=== PATIENT | male | born 1935 | race Caucasian/White ===

== ENCOUNTER 2019-12-28 13:31 | Outpatient (CLI) | payer MEDICARE, SELFPAY ==
[2019-12-28 14:10] LABS: Blood Urea Nitrogen 16 mg/dL (9-20); Calcium 8.8 mg/dL (8.4-10.2); Carbon Dioxide 25 mmol/L (22-30); Chloride 104 mmol/L (98-107); Cholesterol 122 mg/dL (0-200); Estimated Glomerular Filt Rate > 60; Glucose 114 mg/dL (75-110); HDL Direct 57 mg/dL; Potassium 4.5 mmol/L (3.4-5.0); Sodium 137 mmol/L (137-145); Triglycerides 90 mg/dL (<150)
[2019-12-28 14:21] LABS: LDL Cholesterol Direct 47 mg/dL
[2019-12-28 14:26] LABS: Creatinine Urine 140.6 mg/dL
[2019-12-28 14:31] LABS: Microalbumin Urine Random 7.1 mg/L (0-16.7)
[2019-12-28 14:39] LABS: Thyroid Stimulating Hormone 0.928 uIU/mL (0.465-4.680)
[2019-12-28 14:41] LABS: Free T4 Free Thyroxine 1.41 ng/mL (0.78-2.19)
== END 2019-12-28 13:32 | disposition home or self-care (01) ==
PROVIDERS: PCP Internal Medicine; Visit Provider Internal Medicine
DX: E03.9 Hypothyroidism, unspecified (principal); E78.2 Mixed hyperlipidemia; I10 Essential (primary) hypertension; E11.9 Type 2 diabetes mellitus without complications
CPT/HCPCS: 36415; 80048; 80061; 82043; 84439; 84443

== ENCOUNTER 2020-06-27 14:51 | Outpatient (CLI) | payer MEDICARE, SELFPAY ==
--- NOTE | ~2020-06-27 | CT_ITS ---
EXAMINATION: CT brain wo con EXAM DATE: 06/27/2020 15:43 INDICATION: Dementia. TECHNIQUE: Spiral CT of the head was performed without contrast. Axial, coronal and sagittal images were reviewed. The dose-length product (DLP) for this examination was 605.33 mGy-cm. The exposure w as tailored according to patient size, and iterative reconstruction (ASIR) was used as additional dos e reduction technique. There is no prior study for comparison. FINDINGS: There is no acute intraparenchymal hemorrhage. No evidence of intraparenchymal brain mass lesion. No evidence of acute infarction. Please note that initial head CT has limited sensitivity f or small or acute infarctions. There is mild periventricular and subcortical hypodensity, nonspecific but probably related to small vessel ischemic disease. There is moderate prominence of the sulci a nd ventricles related to cerebral atrophy. There is intracranial carotid arteriosclerosis. There a re no extra-axial collections. There is no mass effect or midline shift. Patient has had bilateral ocular lens surgery. Soft tissue is unremarkable. The visualized sinuses and mastoid air cells are well aerated. IMPRESSION: 1. No acute intracranial findings. 2. Chronic age related findings. Reviewed, dictated and finalized at location A. TEACHER
[2020-06-27 18:51] LABS: Thyroid Stimulating Hormone 0.753 uIU/mL (0.465-4.680)
[2020-06-27 19:26] LABS: Folic Acid 10.4 ng/mL (2.76->20)
== END 2020-06-27 14:52 | disposition home or self-care (01) ==
PROVIDERS: PCP Internal Medicine
DX: E11.9 Type 2 diabetes mellitus without complications (principal); Z51.81 Encounter for therapeutic drug level monitoring; Z79.899 Other long term (current) drug therapy; I10 Essential (primary) hypertension; E78.2 Mixed hyperlipidemia; E03.9 Hypothyroidism, unspecified; R79.89 Other specified abnormal findings of blood chemistry; E55.9 Vitamin D deficiency, unspecified; F03.90 Unspecified dementia, unspecified severity, without behavioral disturbance, psychotic disturbance, mood disturbance, and anxiety
CPT/HCPCS: 36415; 70450; 82607; 82746; 84443

== ENCOUNTER 2020-08-21 13:23 | Outpatient (CLI) | payer MEDICARE, SELFPAY ==
[2020-08-21 14:04] LABS: Alanine Aminotransferase 14 U/L (4-50); Albumin Level 4.4 g/dL (3.5-5.1); Alkaline Phosphatase 112 U/L (38-126); Anion Gap 5 mmol/L (8-16); Aspartate Amino Transferase 27 U/L (17-59); Bilirubin,Total 1.1 mg/dL (0.2-1.3); Blood Urea Nitrogen 18 mg/dL (9-20); Calcium 9.3 mg/dL (8.4-10.2); Carbon Dioxide 32 mmol/L (22-30); Chloride 102 mmol/L (98-107); Cholesterol 123 mg/dL (0-200); Estimated Glomerular Filt Rate 58; Glucose 108 mg/dL (75-110); HDL Direct 57 mg/dL; Potassium 4.7 mmol/L (3.4-5.0); Sodium 139 mmol/L (137-145); Triglycerides 88 mg/dL (<150)
[2020-08-21 14:14] LABS: LDL Cholesterol Direct 41 mg/dL
[2020-08-21 14:34] LABS: Thyroid Stimulating Hormone 0.981 uIU/mL (0.465-4.680)
[2020-08-21 14:44] LABS: Hemoglobin A1C 5.8 % (<5.7)
[2020-08-21 14:57] LABS: Free T4 Free Thyroxine 1.55 ng/mL (0.78-2.19)
== END 2020-08-21 13:24 | disposition home or self-care (01) ==
PROVIDERS: PCP Internal Medicine; Visit Provider Internal Medicine
DX: E03.9 Hypothyroidism, unspecified (principal); E11.9 Type 2 diabetes mellitus without complications; I10 Essential (primary) hypertension; E78.2 Mixed hyperlipidemia
CPT/HCPCS: 36415; 80053; 80061; 83036; 84439; 84443

== ENCOUNTER 2020-09-15 10:47 | Outpatient (CLI) | payer MEDICARE, SELFPAY | END 2020-09-15 10:48 | disposition home or self-care (01) | LOC: ANHCOVIDVC 10:47 | PROVIDERS: PCP Internal Medicine | DX: Z23 Encounter for immunization (principal) | CPT/HCPCS: 0001A; 91300 ==

== ENCOUNTER 2020-10-06 10:40 | Outpatient (CLI) | payer MEDICARE, SELFPAY | END 2020-10-06 10:41 | disposition home or self-care (01) | LOC: ANHCOVIDVC 10:40 | PROVIDERS: PCP Internal Medicine | DX: Z23 Encounter for immunization (principal) | CPT/HCPCS: 0002A; 91300 ==

== ENCOUNTER 2020-10-29 11:11 | Outpatient (CLI) | payer MEDICARE, SELFPAY ==
--- NOTE | ~2020-10-29 | XR_ITS ---
EXAMINATION: XR abdomen/kub 1V DATE: 10/29/2020 11:30 INDICATION: Hematuria. TECHNIQUE: A supine view of the abdomen on 2 radiographs was obtained. COMPARISON: CT abdomen and pelvis 05/30/2018 FINDINGS: There are no dilated loops of bowel. There is a stent graft in abdominal aorta and the comm on iliac arteries. There is no visible urolithiasis. There are phleboliths in the pelvis. IMPRESSION: 1. No visible urolithiasis. Reviewed, dictated and finalized at location B. IMPRESSION: 1. No visible urolithiasis.
--- NOTE | ~2020-10-29 | CT_ITS ---
EXAMINATION: CT abdomen pelvis w con DATE: 10/29/2020 14:03 INDICATION: Left lower quadrant abdominal pain. Melena. TECHNIQUE: Computed tomography (CT) of the abdomen and pelvis was performed with 100 mL Omnipaque 350 intravenous contrast. Automated exposure control and iterative reconstruction technique were employe d. The dose-length product was 574.97 mGy-cm. COMPARISON: CT abdomen and pelvis 05/30/2018 FINDINGS: The visualized portions of the lung bases demonstrate mild atelectasis and chronic lung dis ease. No pleural effusion. The heart size is normal. There are coronary artery calcifications. There are calcifications of aortic valve. There is a 5.2 cm fusiform aneurysm of ascending aorta. The liver is normal. There are gallstones in the gallbladder, which is normal in size. The spleen, pancreas, a nd adrenal glands are normal. There are cysts in the kidneys measuring up to 5.1 cm on the left. The prostate is mildly enlarged. There is diverticulosis of the colon without evidence of diverticulitis. There are no pathologically enlarged lymph nodes. There is no free intraperitoneal fluid. There is a 9.4 cm fusiform aneurysm of abdominal aorta and measures 7.8 cm on 05/30/2018. A large volume of con trast enters the aneurysm sac from a gap in the stent graft of the right common iliac limb. There are benign bone islands in the right ilium. There is severe thoracolumbar spondylosis. IMPRESSION: 1. 9.4 cm fusiform aneurysm of abdominal aorta with worsening from 7.8 cm on 05/30/2018. Large endole ak involving the stent graft limb to the right common iliac artery. 2. 5.2 cm fusiform aneurysm of ascending aorta, stable from 05/30/2018. Reviewed, dictated and finalized at location B. IMPRESSION: 1. 9.4 cm fusiform aneurysm of abdominal aorta with worsening from 7.8 cm on . Large endoleak involving the stent graft limb to the right common ruma ac artery. 2. 5.2 cm fusiform aneurysm of ascending aorta, stable from 05/30/2018.
[2020-10-29 13:49] LABS: Estimated Glomerular Filt Rate > 60
[2020-10-29 17:43] LABS: Add Urine Microscopic? NO; Appearance Urine Clear (Clear); Bilirubin Urine Negative (Negative); Blood Urine Negative (Negative); Color Urine Yellow (Yellow); Glucose Urine UA Negative (Negative); Ketones Urine Negative (Negative); Leukocyte Esterase Ur Negative LEU/UL (Negative); Nitrate Urine Negative (Negative); Protein Urine Negative (Negative); Urobilinogen Urine Negative mg/dL (<2.0)
[2020-10-29 17:49] LABS: Specific Grav Ur 1.049 (1.001-1.035)
== END 2020-10-29 11:12 | disposition home or self-care (01) ==
PROVIDERS: PCP Internal Medicine; Visit Provider Internal Medicine
DX: R31.9 Hematuria, unspecified (principal); K92.1 Melena; R10.32 Left lower quadrant pain; I71.4 Abdominal aortic aneurysm, without rupture
CPT/HCPCS: 74018; 74177; 81003; Q9967

== ENCOUNTER 2020-10-29 14:24 | Emergency (ER) | payer MEDICARE, SELFPAY ==
[2020-10-29] VITALS (23 sets, daily range): BP systolic 108–153; BP diastolic 68–90; PULSE 61–96; RESP 15–28; TEMP 36.7; O2SAT 95–100
--- NOTE | 2020-10-29 14:46 | PC.NURSE ---
Pt requested that his daughter be called. Ann-Marie notified and will be enroute here to [facility] ed.
[2020-10-29 14:49] LABS: Basophils Percent Auto 0.5 % (0.2-1.2); Eosinophils Percent Auto 0.3 % (0-4.4); Hemoglobin 12.2 g/dL (14.0-18.0); Immature Granulocyte Absolute 0.04 K/mm3 (0.00-0.031); Immature Granulocyte Percent A 0.6 % (0-0.5); Immature Platelet Fraction Pct 3.1 % (0.9-11.2); Lymphocytes Absolute Auto 0.78 K/mm3 (0.9-3.2); Lymphocytes Percent Auto 11.9 % (18.3-44.2); Mean Corpuscular HGB Conc 31.3 g/dl (32-36); Mean Corpuscular Hemoglobin 29.1 pg (26-34); Mean Corpuscular Volume 93.1 fl (80-100); Mean Platelet Volume 10.4 fl (7.4-10.4); Monocytes Absolute Auto 0.4 K/mm3 (0.1-0.6); Neutrophils Absolute Auto 5.3 K/mm3 (1.3-6.7); Neutrophils Percent Auto 80.7 % (45.5-73.1); Platelet Count Result 152 k/mm3 (150-375); Red Blood Count 4.19 M/mm3 (4.6-6.20); Red Cell Distribution Width 15.9 % (11.5-14.5); White Blood Count 6.6 K/mm3 (4.5-10.0)
[2020-10-29] MEDS: SODIUM CHLORIDE 0.9% IV 1,000 ML 30 ML IV CONT (14:51)
[2020-10-29 14:57] LABS: Partial Thromboplastin Time 27.3 SECONDS (22.3-36.8)
--- NOTE | 2020-10-29 15:55 | PC.NURSE ---
[place] ED states unable to receive pt report due to ER declined patient, we are in process of making him in patient. EDP confirms this is accurate. Kathy Orlando - receptionist secretary made aware to cancel EMS due to no bed assigned yet.
--- NOTE | 2020-10-29 16:22 | PC.NURSE ---
Per Dr Cade SALDANA titrate Esmolol to 100mcg from 50mcg. Pt remains on tele monitor.
--- NOTE | 2020-10-29 16:27 | PC.NURSE ---
patient now direct admit waiting for bed assignment at [facility]. [facility], lights and sirens canceled at 1550.
[2020-10-29 16:52] LABS: Alanine Aminotransferase 17 U/L (4-50); Albumin Level 4.3 g/dL (3.5-5.1); Alkaline Phosphatase 94 U/L (38-126); Anion Gap 7 mmol/L (8-16); Aspartate Amino Transferase 36 U/L (17-59); Bilirubin,Total 0.6 mg/dL (0.2-1.3); Blood Urea Nitrogen 14 mg/dL (9-20); Calcium 8.8 mg/dL (8.4-10.2); Carbon Dioxide 30 mmol/L (22-30); Chloride 101 mmol/L (98-107); Estimated CRCL calculation 59 ml/min; Estimated Glomerular Filt Rate > 60; Glucose 92 mg/dL (75-110); Potassium 3.9 mmol/L (3.4-5.0); Sodium 138 mmol/L (137-145)
--- NOTE | 2020-10-29 17:07 | PC.NURSE ---
PER EDP JOSE HICKS TO TITRATE ESMOLOL GTT TO 125 FROM 100 DUE TO BP 131/73 (ABOVE TARGET RANGE), HR 64.
--- NOTE | 2020-10-29 17:13 | ED.RECABL ---
HPI - Recheck/Abnormal Lab/Rx General Chief Complaint: Recheck/Abnormal Lab/Rx Stated Complaint: Abnormal Labs/Scan Time Seen by Provider: 10/29/20 14:35 Source: patient and old records reviewed Mode of arrival: wheelchair Limitations: no limitations History of Present Illness HPI narrative: 85-year-old male Patient was directed to the ER from radiology department due to an abnormal CT scan He has a history of a AAA which was originally stented some 15 years ago and about 6 months ago was relined at [place] due to a endovascular leak Here as I can tell from the records which I am able to access, even at that time the aneurysm was fixed, there was some discussion about the feasibility and advisability of performing a procedure, and even after the procedure was completed there was some concern that there may have been some ongoing amount of leakage and a plan of watchful waiting seems to have been in place He went to the office today complaining of difficulty with urination and possibly hematuria and was sent to the hospital to have an abdominal CT scan done The CT showed a very large aneurysm and a possible ongoing leak in the right iliac area so he was sent to the ED Here he is really in very little distress whatsoever and again complains only of some urinary difficulty Related Data Home Medications Medication Instructions Recorded Confirmed aspirin 81 mg tablet,delayed 81 mg PO DAILY 07/31/19 09/09/20 release clonazepam 1 mg tablet 1 mg PO DAILY 07/31/19 09/09/20 desvenlafaxine succinate 100 mg 100 mg PO DAILY 07/31/19 09/09/20 tablet,extended release 24 hr sertraline 100 mg tablet 100 mg PO DAILY 07/31/19 09/09/20 amitriptyline 25 mg tablet 50 mg PO ONCE tablet 04/15/20 09/09/20 aripiprazole 5 mg tablet 5 mg PO DAILY 04/15/20 09/09/20 donepezil 5 mg tablet 5 mg PO ONCE 04/15/20 09/09/20 Allergies Allergy/AdvReac Type Severity Reaction Status Date / Time latex Allergy Unknown Itching Verified 10/29/20 14:41 ANAFRANEL Allergy Mild MADE HIM Uncoded 10/29/20 14:41 JITTERY Review of Systems Review of Systems: All systems reviewed & are unremarkable except as noted in HPI and below Constitutional: Constitutional: Reports no additional constitutional complaints, Denies chills, Reports fatigue, Denies fever(s), Denies headache(s) and Reports weakness Eyes: Eyes: Reports no additional eye complaints and Denies change in vision ENT: Denies headache(s) and Denies sore throat Comments: Very hard of hearing Cardiovascular: Cardiovascular: Denies chest pain and Denies dyspnea Respiratory: Respiratory: Denies cough and Denies dyspnea Gastrointestinal: Gastrointestinal: Denies abdominal pain, Denies bloating, Denies diarrhea and Denies vomiting Genitourinary: Genitourinary: Reports hematuria, Reports oliguria, Denies dysuria and Denies urinary frequency Musculoskeletal: Musculoskeletal: Reports myalgias, Denies deformity, Denies arthralgias, Denies joint swelling and Denies numbness Integumentary/Breasts: Skin/Breast: Denies rash and Denies wounds Neurologic: Denies headache(s), Denies focal weakness and Denies numbness Psychiatric: Psychiatric: Reports no additional psychiatric complaints Endocrine: Endocrine: Reports no additional endocrine complaints Hematologic/Lymphatic: Hematologic/Lymphatic: Reports no additional hematologic/lymphatic complaints Allergic/Immunologic: Allergic/Immunologic: Reports no additional allergic/immunologic complaints [facility] Past Medical History Medical History Benign essential hypertension BMI 27.0-27.9,adult BMI 29.0-29.9,adult BMI 32.0-32.9,adult BMI 33.0-33.9,adult Cognitive dysfunction DM type 2 (diabetes mellitus, type 2) Elevated homocysteine Encounter for Medicare annual wellness exam Encounter for routine adult health examination with abnormal findings Encounter for routine adult health examination without abnorma
--- NOTE | 2020-10-29 17:33 | PC.NURSE ---
Per Dr Mohamud, requesting u/a. He tried to order but it was cancelled. This RN tried to order x2 per VORB, but also notes cancelled. Reported to Isabell GASTELUM, charge nurse and was told to call lab. I called Laboratory and spoke to Fan. He has no orders, but will allow me to send down tubes and he will run them. Urine collected and sent w/ JIC labels and my name and time as requested.
--- NOTE | 2020-10-29 19:43 | PC.NURSE ---
Assumed care of pt at 1900. Prior nurse reports pt is being transferred to [facility] and we are waiting for a bed.
--- NOTE | 2020-10-29 20:04 | PC.NURSE ---
Spoke with Dr. Slaughter about blood pressure medication, VORB from Dr Slaughter to continue the esmolol. I called down to Pharmacy for another bag of esmolol, pharmacy said she will send it up.
--- NOTE | 2020-10-29 20:21 | PC.NURSE ---
[facility] called [facility] for update on pt. bed status. Kira instructed to call back
--- NOTE | 2020-10-29 21:19 | PC.NURSE ---
Spoke with pharmacy. RN instructed to titrate Esmolol 50mcg/min/kg with a max of 300 mcg/min/kg to maintain systolic BP of 110
== END 2020-10-29 22:10 | disposition short-term general hospital (02) ==
PROVIDERS: Emergency Provider Emergency Medicine; PCP Internal Medicine
DX: I71.3 Abdominal aortic aneurysm, ruptured (principal); I10 Essential (primary) hypertension; E11.9 Type 2 diabetes mellitus without complications; K21.9 Gastro-esophageal reflux disease without esophagitis; Z86.711 Personal history of pulmonary embolism; E78.5 Hyperlipidemia, unspecified; E03.9 Hypothyroidism, unspecified; F32.9 Major depressive disorder, single episode, unspecified; E55.9 Vitamin D deficiency, unspecified; Z87.891 Personal history of nicotine dependence; Z79.82 Long term (current) use of aspirin; R31.9 Hematuria, unspecified
CPT/HCPCS: 36415; 74018; 74177; 80053; 81003; 85025; 85055; 85610; 85730; 86850; 86900; 86901; 96361; 96365; 96366; 99291; J7030; Q9967

== ENCOUNTER 2021-01-14 13:54 | Outpatient (CLI) | payer MEDICARE, SELFPAY ==
[2021-01-14 16:30] LABS: Basophils Percent Auto 0.5 % (0.2-1.2); Eosinophils Absolute Auto 0.1 K/mm3 (0-0.3); Eosinophils Percent Auto 0.7 % (0-4.4); Hematocrit 39.1 % (42.0-52.0); Hemoglobin 12.4 g/dL (14.0-18.0); Immature Granulocyte Absolute 0.07 K/mm3 (0.00-0.031); Immature Granulocyte Percent A 0.9 % (0-0.5); Lymphocytes Absolute Auto 0.97 K/mm3 (0.9-3.2); Lymphocytes Percent Auto 12.9 % (18.3-44.2); Mean Corpuscular HGB Conc 31.7 g/dl (32-36); Mean Corpuscular Hemoglobin 28.6 pg (26-34); Mean Corpuscular Volume 90.1 fl (80-100); Mean Platelet Volume 10.3 fl (7.4-10.4); Monocytes Absolute Auto 0.4 K/mm3 (0.1-0.6); Monocytes Percent Auto 5.8 % (2.6-8.5); Neutrophils Percent Auto 79.2 % (45.5-73.1); Platelet Count Result 171 k/mm3 (150-375); Red Blood Count 4.34 M/mm3 (4.6-6.20); Red Cell Distribution Width 14.7 % (11.5-14.5); White Blood Count 7.5 K/mm3 (4.5-10.0)
[2021-01-14 16:51] LABS: Alanine Aminotransferase 16 U/L (4-50); Albumin Level 4.3 g/dL (3.5-5.1); Alkaline Phosphatase 112 U/L (38-126); Anion Gap 12 mmol/L (8-16); Aspartate Amino Transferase 27 U/L (17-59); Bilirubin,Total 0.8 mg/dL (0.2-1.3); Blood Urea Nitrogen 15 mg/dL (9-20); Calcium 9.7 mg/dL (8.4-10.2); Carbon Dioxide 27 mmol/L (22-30); Chloride 100 mmol/L (98-107); Cholesterol 130 mg/dL (0-200); Estimated Glomerular Filt Rate > 60; Glucose 119 mg/dL (75-110); HDL Direct 75 mg/dL; Potassium 4.4 mmol/L (3.4-5.0); Sodium 139 mmol/L (137-145); Triglycerides 58 mg/dL (<150)
[2021-01-14 17:02] LABS: LDL Cholesterol Direct 44 mg/dL
[2021-01-14 17:07] LABS: Free T4 Free Thyroxine 1.64 ng/mL (0.78-2.19)
== END 2021-01-14 13:55 | disposition home or self-care (01) ==
LOC: ANHWCLAB 13:58
PROVIDERS: PCP Internal Medicine; Visit Provider Internal Medicine
DX: E11.9 Type 2 diabetes mellitus without complications (principal); E03.9 Hypothyroidism, unspecified; E78.2 Mixed hyperlipidemia
CPT/HCPCS: 36415; 80053; 80061; 83036; 84439; 84443; 85025

== ENCOUNTER 2021-01-29 14:00 | Outpatient (RCR) | payer MEDICARE, SELFPAY ==
--- NOTE | 2021-01-01 14:56 | PTOPEVAL ---
PHYSICAL THERAPY EVALUATION AND PLAN OF CARE 01-01-21 Thank you for referring Drake Jett to [facility] for the diagnosis of weakness and decreased walking ability. He is scheduled to be seen for therapy? 2 x/week for 4 weeks. Please review, sign, date and return this plan of care LINDA. I agree with and certify that the following plan of care is medically necessary. Referring Physician Date Attending Provider: Francy Bonilla APRN PT Outpatient Evaluation Document 01/01/21 14:05 KASIA (Rec: 01/01/21 14:56 KASIA [id number]) Past Medical History Source of Past Medical History Recalled from Previous Visit, Confirmed with Patient/Family Neurological History Hx Neurological Disorders No Significant History Cardiovascular History Hx Aneurysm Yes: AAA, acending aorta Hx Hypertension Yes: meds Respiratory History Hx Pulmonary Embolism Yes Gastrointestinal History Hx Gastrointestinal Disorders No Significant History Genitourinary History Hx Other Genitourinary Disorders Yes: urinary Retention Musculoskeletal History Hx Arthritis Yes: fingers/hands Hematological History Hx Hematological Disorders No Significant History Endocrine History Hx Diabetes Yes: Insulin dependenet Type 2 - meds HEENT History Hx Other HEENT Disorders Yes: B hearing aides Integumentary History Hx Skin Disorders No Significant History Reproductive History Hx Reproductive Disorders No Significant History Psychosocial History Hx Other Psychiatric Disorders Yes: OCD Other History Hx Other Medical Conditions Yes: have had COVID vaccine Evaluation Information Problem Diagnosis weakness and decreased gait Onset about year ago Subjective Information gradual decrease in strength Query Text:As Reported By Patient/ and gait; NO falls; stent Family through [facility] for AAA- October 2020; use cane or wheeled walker now for walking; they want me to get stronger and then will do surgery for the aneurysm near my heart Prior Level of Function Activity Level (Last 3 Months) Cooking Yes Cleaning Yes Laundry Yes Shopping No Driving Yes Home Setting Home Type House,Multiple Levels Environmental Barriers Stairs, Greater than 4 Living Situation Alone Mobility Assistive Devices (Used Last 3 None,Cane,Walker, Wheeled Months) Comments Additional Prior Level of
--- NOTE | 2021-01-29 14:48 | PTOPEVAL ---
PHYSICAL THERAPY DISCHARGE 01-29-21 Refer to the clinical summary below for his status today, compared to the initial evaluation. The goals were partially achieved. Discharge PT at this time. He is to continue with his leg exercises and increase his walking as tolerated. Thank you for referring Drake Jett to [facility].? Please review, sign, date and return this Discharge LINDA. I agree with and certify that the following plan of care is medically necessary. Referring Physician Date Attending Provider: Francy Bonilla, AIR QUALITY CHEMIST Document 01/29/21 14:05 KASIA (Rec: 01/29/21 14:48 KASIA [id number]) Assessment Status Discharge Subjective Information [place] reports: is doing his Query Text:As Reported By Patient/ exercises at home-up to 20 Family reps; use wheeled walker at home and cane when going out to store or uatsdin--feel OK going out; have not had any falls; tire easily, legs give out and weak; surgery for aortic aneurysm is not scheduled yet; agrees to discharge from PT. Pain Assessment Timing of Pain Assessment Timing of Pain Assessment Assessment Self Report Self Report Pain Level 0 Pain Score Pain Score 0: Self Report Additional Pain Score Comments some pain in upper back with move arms Lower Extremity Muscle Strength Testing General Lower Extremity Strength Gross Lower Extremity Strength functional strength testing: supine SLR R 25 /L 27 reps; hip abduction R 30/ L 30 reps sitting: L ankle DF to (-3') , circles with decreased ROM and control compared to R ankle Balance Assessment Balance Screen Balance Comment static stand eyes closed x 20 sec;stand with R/L sh flexion x 10 reps-indep Tinetti Balance Assessment Sitting Balance Steady, safe Ability to Arise Able, w/o using arms Attempts to Arise Arises on 1st attempt Immediate Standing Balance Steady with support Standing Balance Steady, wide stance Nudged Response Staggers, catches self Standing with Eyes Closed Steady Step Pattern Turning 360 Degrees Continuous steps Stability Turning 360 Degrees Steady Sitting Down Uses arms or unsteady Initiation of Gait No hesitancy Right Foot Step Length Does pass stance foot Right Foot Step Height Completely clears floor Left Foot Step Length
== END 2021-03-18 11:56 | disposition home or self-care (01) ==
LOC: ANHPT 14:00
PROVIDERS: PCP Internal Medicine
DX: I71.2 Thoracic aortic aneurysm, without rupture (principal)
CPT/HCPCS: 97110; 97161

== ENCOUNTER 2021-02-06 10:46 | Outpatient (CLI) | payer MEDICARE, SELFPAY ==
[2021-02-06 11:11] LABS: Basophils Percent Auto 0.7 % (0.2-1.2); Eosinophils Absolute Auto 0.1 K/mm3 (0-0.3); Eosinophils Percent Auto 1.2 % (0-4.4); Hemoglobin 12.5 g/dL (14.0-18.0); Immature Granulocyte Absolute 0.05 K/mm3 (0.00-0.031); Immature Granulocyte Percent A 0.9 % (0-0.5); Lymphocytes Absolute Auto 0.84 K/mm3 (0.9-3.2); Lymphocytes Percent Auto 14.5 % (18.3-44.2); Mean Corpuscular HGB Conc 31.3 g/dl (32-36); Mean Corpuscular Hemoglobin 28.7 pg (26-34); Mean Platelet Volume 9.6 fl (7.4-10.4); Monocytes Absolute Auto 0.3 K/mm3 (0.1-0.6); Monocytes Percent Auto 5.5 % (2.6-8.5); Neutrophils Absolute Auto 4.5 K/mm3 (1.3-6.7); Neutrophils Percent Auto 77.2 % (45.5-73.1); Platelet Count Result 168 k/mm3 (150-375); Red Blood Count 4.35 M/mm3 (4.6-6.20); Red Cell Distribution Width 14.9 % (11.5-14.5); White Blood Count 5.8 K/mm3 (4.5-10.0)
[2021-02-06 11:23] LABS: Anion Gap 11 mmol/L (8-16); Blood Urea Nitrogen 21 mg/dL (9-20); Calcium 9.7 mg/dL (8.4-10.2); Carbon Dioxide 29 mmol/L (22-30); Chloride 101 mmol/L (98-107); Cholesterol 141 mg/dL (0-200); Estimated Glomerular Filt Rate > 60; Glucose 139 mg/dL (65-110); HDL Direct 74 mg/dL; Potassium 4.3 mmol/L (3.4-5.0); Prothrombin Time 13.5 Seconds (11.1-14.7); Sodium 141 mmol/L (137-145); Triglycerides 79 mg/dL (<150)
[2021-02-06 11:33] LABS: LDL Cholesterol Direct 50 mg/dL
== END 2021-02-06 10:47 | disposition home or self-care (01) ==
LOC: ANHLAB 10:54
PROVIDERS: PCP Internal Medicine
DX: I71.2 Thoracic aortic aneurysm, without rupture (principal)
CPT/HCPCS: 36415; 80048; 80061; 85025; 85610

== ENCOUNTER 2021-03-09 18:50 | Emergency (ER) | payer MEDICARE, SELFPAY ==
[2021-03-09 18:59] VITALS: BP 158/111; PULSE 101; RESP 20; TEMP 38; O2SAT 98
--- NOTE | 2021-03-09 19:14 | ED.GENADULT ---
HPI - General Adult General Chief complaint: Upper Respiratory Infection Stated complaint: cough/weak/diarrhea Source: patient and family (Adult daughter) Mode of arrival: ambulatory Limitations: no limitations History of Present Illness HPI narrative: Patient is a 85-year-old male who presents to the [facility] via POV accompanied by adult daughter for evaluation of Covid-like symptoms that began approximately 2 days ago. He reports a dry cough, intermittent diarrhea, fever, weakness, sore throat, dizziness, loss of taste, loss of appetite, and shortness of breath. He reports the diarrhea is brown to black in color. Tylenol improves fever. Nothing worsens symptoms. Related Data Home Medications Medication Instructions Recorded Confirmed aspirin 81 mg tablet,delayed 81 mg PO DAILY 07/31/19 03/09/21 release clonazepam 1 mg tablet 1 mg PO DAILY 07/31/19 03/09/21 desvenlafaxine succinate 100 mg 100 mg PO DAILY 07/31/19 03/09/21 tablet,extended release 24 hr sertraline 100 mg tablet 100 mg PO DAILY 07/31/19 03/09/21 amitriptyline 25 mg tablet 50 mg PO ONCE tablet 04/15/20 03/09/21 aripiprazole 5 mg tablet 5 mg PO DAILY 04/15/20 03/09/21 donepezil 5 mg tablet 5 mg PO ONCE 04/15/20 03/09/21 clopidogrel 75 mg tablet 75 mg PO DAILY 02/24/21 03/09/21 Allergies Allergy/AdvReac Type Severity Reaction Status Date / Time latex Allergy Unknown Itching Verified 03/09/21 19:02 ANAFRANEL Allergy Mild MADE HIM Uncoded 03/09/21 19:02 JITTERY Review of Systems Review of Systems: Denies history of COPD, bronchitis, asthma, and pneumonia. Pertinent negatives: fever, sweats, chills, fatigue, skin color changes, headache, vision changes, syncope, vertigo, seizure activity, memory loss, difficulty with coordination, gait, or equilibrium, paresthesias, nasal congestion/discharge, LOC, lymphadenopathy, sinus problems, ear pain/drainage, chest pain, heart murmurs, heart palpitations, wheezing, cyanosis, hemoptysis, hoarseness, orthopnea, pleuritic pain, nausea, vomiting, and myalgias. [facility] Past Medical History Medical History Aortic valve disease Benign essential hypertension BMI 26.0-26.9,adult BMI 27.0-27.9,adult BMI 29.0-29.9,adult BMI 32.0-32.9,adult BMI 33.0-33.9,adult Cognitive dysfunction DM type 2 (diabetes mellitus, type 2) Elevated homocysteine Encounter for Medicare annual wellness exam Encounter for routine adult health examination with abnormal findings Encounter for routine adult health examination without abnormal findings Follow up GERD (gastroesophageal reflux disease) Hearing loss History of pulmonary embolism Hyperlipidemia Hypothyroidism (acquired) Left lower quadrant abdominal pain Major depressive disorder Melena Nocturia On prison drug therapy Rectal bleeding Thoracic ascending aortic aneurysm Vitamin D deficiency Weight loss Surgical History Surgical History Status post abdominal aortic aneurysm (AAA) repair Social History Social History Smoking status: Former smoker Smoking end date: 07/11/79 Alcohol intake: current Gender identity (if verbalized by the patient): Male Comments I have reviewed and agree with the patient's past medical, surgical, social, and family hx as documented by the RN. There is no relevant family history pertinent to the presenting complaint. Exam Narrative: GENERAL: Well-appearing, well-nourished, and in no acute distress. Appears ill. HEAD: Normocephalic, atraumatic. No sinus tenderness or facial swelling appreciated. No evidence of ear bleeding or drainage from ears. No evidence of foreign bodies. No signs of basilar skull fracture: no hemotympanum, buchanan's sign, or raccoon's eyes. EYES: PERRLA and EOMI. No evidence of erythema, swelling, or drainage. ENT:
== END 2021-03-09 19:25 | disposition short-term general hospital (02) ==
PROVIDERS: Emergency Provider Nurse Practitioner Family; PCP Internal Medicine
DX: R50.9 Fever, unspecified (principal); R53.1 Weakness; R42 Dizziness and giddiness; Z87.891 Personal history of nicotine dependence; I10 Essential (primary) hypertension; E11.42 Type 2 diabetes mellitus with diabetic polyneuropathy; K21.9 Gastro-esophageal reflux disease without esophagitis; Z86.711 Personal history of pulmonary embolism; E78.5 Hyperlipidemia, unspecified; F32.9 Major depressive disorder, single episode, unspecified; I38 Endocarditis, valve unspecified
CPT/HCPCS: 87426; 99213; C9803; G0463

== ENCOUNTER 2021-03-09 19:48 | Emergency (ER) | payer MEDICARE, SELFPAY ==
--- NOTE | ~2021-03-09 | XR_ITS ---
EXAMINATION: XR chest 1V DATE: 03/09/2021 21:18 INDICATION: Cough and fever. TECHNIQUE: A single frontal view of the chest was obtained. COMPARISON: Chest 2 views 11/27/2015, chest CT 03/01/2018 FINDINGS: There is chronic superior displacement of the minor fissure. There are chronic mild airspac e opacities in right upper lobe and left lower lung zone. No pleural effusion or pneumothorax. The he art size is normal. Again seen is an aneurysm of ascending aorta. IMPRESSION: 1. Stable chronic lung disease. 2. Ascending aortic aneurysm again seen. Reviewed, dictated and finalized at location A.
[2021-03-09 20:06] VITALS: BP 127/82; PULSE 109; RESP 14; TEMP 38.2; O2SAT 96
--- NOTE | 2021-03-09 20:09 | ECG_ITS ---
Measurements Intervals [place] Rate: 103 P: 52 SC: 255 QRS: -28 QRSD: 90 T: 76 QT: 322 QTc: 423 Interpretive Statements SINUS TACHYCARDIA WITH FIRST DEGREE AV BLOCK VOLTAGE CRITERIA FOR LVH CANNOT RULE OUT SEPTAL INFARCT, AGE INDETERMINATE BORDERLINE T WAVE ABNORMALITY- HIGH LATERAL LEADS BASELINE ARTIFACT- I, III, AVR, AVL, V5-V6 ABNORMAL ECG Electronically Signed On 03-10-2021 6:16:45 CDT by Vini De Paz D.O.
[2021-03-09 20:28] LABS: Basophils Percent Auto 0.3 % (0.2-1.2); Eosinophils Percent Auto 0.2 % (0-4.4); Hematocrit 34.7 % (42.0-52.0); Hemoglobin 10.9 g/dL (14.0-18.0); Immature Granulocyte Absolute 0.04 K/mm3 (0.00-0.031); Immature Granulocyte Percent A 0.6 % (0-0.5); Lymphocytes Absolute Auto 0.59 K/mm3 (0.9-3.2); Lymphocytes Percent Auto 9.4 % (18.3-44.2); Mean Corpuscular HGB Conc 31.4 g/dl (32-36); Mean Corpuscular Hemoglobin 28.2 pg (26-34); Mean Corpuscular Volume 89.9 fl (80-100); Mean Platelet Volume 9.4 fl (7.4-10.4); Monocytes Absolute Auto 0.7 K/mm3 (0.1-0.6); Monocytes Percent Auto 11.3 % (2.6-8.5); Neutrophils Absolute Auto 4.9 K/mm3 (1.3-6.7); Neutrophils Percent Auto 78.2 % (45.5-73.1); Platelet Count Result 143 k/mm3 (150-375); Red Blood Count 3.86 M/mm3 (4.6-6.20); Red Cell Distribution Width 16.1 % (11.5-14.5); White Blood Count 6.3 K/mm3 (4.5-10.0)
[2021-03-09 20:44] LABS: Alanine Aminotransferase 22 U/L (4-50); Albumin Level 4.2 g/dL (3.5-5.1); Alkaline Phosphatase 105 U/L (38-126); Anion Gap 11 mmol/L (8-16); Aspartate Amino Transferase 38 U/L (17-59); Bilirubin,Total 0.6 mg/dL (0.2-1.3); Blood Urea Nitrogen 20 mg/dL (9-20); Calcium 9.1 mg/dL (8.4-10.2); Carbon Dioxide 29 mmol/L (22-30); Chloride 95 mmol/L (98-107); Estimated CRCL calculation 53 ml/min; Estimated Glomerular Filt Rate > 60; Glucose 116 mg/dL (65-110); Potassium 4.4 mmol/L (3.4-5.0); Sodium 135 mmol/L (137-145)
[2021-03-09 21:12] LABS: Add Urine Microscopic? YES; Appearance Urine Clear (Clear); Bilirubin Urine Negative (Negative); Blood Urine Negative (Negative); Color Urine Yellow (Yellow); Glucose Urine UA Negative (Negative); Ketones Urine Negative (Negative); Leukocyte Esterase Ur Negative LEU/UL (Negative); Nitrate Urine Negative (Negative); Protein Urine Negative (Negative); Specific Grav Ur 1.017 (1.001-1.035); Squamous Epithelial Cell Urine Rare /hpf (Few); Urobilinogen Urine Negative mg/dL (<2.0); WBC Urine 0-3 /hpf
[2021-03-09 22:10] VITALS: BP 153/79; PULSE 103; RESP 20; TEMP 37.6; O2SAT 99
--- NOTE | 2021-03-09 22:25 | ED.WEAKNESS ---
HPI - Weakness General Chief complaint: Weakness Stated complaint: Shortness of Breath Time Seen by Provider: 03/09/21 22:13 Source: patient Mode of arrival: ambulatory Limitations: no limitations History of Present Illness HPI Narrative: Patient is an 85-year-old male complaining of cough, fever and increasing weakness that started 3 days ago and worse today. Patient denies any chest pain, shortness of breath, abdominal pain, nausea, vomiting, diarrhea or urinary symptoms. Related Data Home Medications Medication Instructions Recorded Confirmed aspirin 81 mg tablet,delayed 81 mg PO DAILY 07/31/19 03/09/21 release clonazepam 1 mg tablet 1 mg PO DAILY 07/31/19 03/09/21 desvenlafaxine succinate 100 mg 100 mg PO DAILY 07/31/19 03/09/21 tablet,extended release 24 hr sertraline 100 mg tablet 100 mg PO DAILY 07/31/19 03/09/21 amitriptyline 25 mg tablet 50 mg PO ONCE tablet 04/15/20 03/09/21 aripiprazole 5 mg tablet 5 mg PO DAILY 04/15/20 03/09/21 donepezil 5 mg tablet 5 mg PO ONCE 04/15/20 03/09/21 clopidogrel 75 mg tablet 75 mg PO DAILY 02/24/21 03/09/21 Allergies Allergy/AdvReac Type Severity Reaction Status Date / Time latex Allergy Unknown Itching Verified 03/09/21 19:02 ANAFRANEL Allergy Mild MADE HIM Uncoded 03/09/21 19:02 JITTERY Review of Systems Review of Systems: All systems reviewed & are unremarkable except as noted in HPI and below Constitutional: Constitutional: Denies body ache(s), Denies excessive sweating, Denies fatigue, Denies headache(s), Denies lethargy, Denies malaise and Denies weight loss Eyes: Eyes: Denies blurry vision, Denies change in vision and Denies loss of vision ENT: Denies dizziness, Denies ear discharge, Denies headache(s), Denies lip swelling, Denies epistaxis, Denies nasal congestion, Denies neck pain, Denies throat swelling and Denies tongue swelling Cardiovascular: Cardiovascular: Denies chest pain, Denies chest pain at rest, Denies chest pain with activity, Denies diaphoresis, Denies rapid heart rate, Denies edema, Denies irregular heart rhythm, Denies lightheadedness, Denies palpitations, Denies dyspnea and Denies dyspnea on exertion Respiratory: Respiratory: Denies chest congestion, Denies hemoptysis, Denies dyspnea and Denies dyspnea on exertion Gastrointestinal: Gastrointestinal: Denies abdominal pain, Denies melena, Denies hematochezia, Denies diarrhea, Denies nausea, Denies vomiting and Denies hematemesis Musculoskeletal: Musculoskeletal: Denies abnormal gait, Denies deformity, Denies joint swelling, Denies limited range of motion, Denies neck pain and Denies numbness Neurologic: Denies Abnormal speech present, Denies abnormal gait, Denies confusion, Denies dizziness, Denies headache(s), Denies focal weakness, Denies loss of vision, Denies numbness, Denies Other visual disturbances, Denies Sensory deficit (Neuro) and Denies weakness Psychiatric: Psychiatric: Denies confusion, Denies depression, Denies auditory hallucinations, Denies homicidal ideation and Denies suicidal ideation Endocrine: Endocrine: Denies cold intolerance, Denies excessive sweating, Denies fatigue, Denies heat intolerance and Denies palpitations Hematologic/Lymphatic: Hematologic/Lymphatic: Denies easy bleeding and Denies easy bruising Allergic/Immunologic: Allergic/Immunologic: Denies lip swelling, Denies throat swelling and Denies tongue swelling PMFSH Past Medical History Medical History Aortic valve disease Benign essential hypertension BMI 26.0-26.9,adult BMI 27.0-27.9,adult BMI 29.0-29.9,adult BMI 32.0-32.9,adult BMI 33.0-33.9,adult Cognitive dysfunction DM type 2 (diabetes mellitus, type 2) Elevated homocysteine Encounter for Medicare annual wellness exam Encounter for routine adult health examination with abnormal findings Encounter for routine adult health examination without abnormal findings Follow up GERD (gastroesophageal reflux
[2021-03-09 23:43] LABS: Lactic Acid Reflex 0.8 mmol/L (0.7-2.1)
[2021-03-10] MEDS: ACETAMINOPHEN 325 MG TABLET 650 MG PO (00:28)
[2021-03-10] MEDS: LACTATED RINGERS 1,000 ML 999 ML IV CONT (00:54)
[2021-03-10] MEDS: DEXAMETHASONE SOD PHOS INJ 4 MG/ML VIAL 10 MG IV PUSH (00:55)
--- NOTE | 2021-03-10 00:55 | PC.NURSE ---
hayley from dr diaz to give a 250 mls bolus.
[2021-03-10 01:03] VITALS: BP 113/68; PULSE 74; RESP 16; O2SAT 100
[2021-03-10 01:39] VITALS: TEMP 37.1
[2021-03-10 19:55] LABS: SARS-CoV-2 RNA PCR Positive
== END 2021-03-10 01:41 | disposition home or self-care (01) ==
PROVIDERS: Emergency Provider Emergency Medicine; PCP Internal Medicine
DX: J20.9 Acute bronchitis, unspecified (principal); E11.9 Type 2 diabetes mellitus without complications; I10 Essential (primary) hypertension; E78.5 Hyperlipidemia, unspecified; I35.8 Other nonrheumatic aortic valve disorders; I71.2 Thoracic aortic aneurysm, without rupture; E03.9 Hypothyroidism, unspecified; K21.9 Gastro-esophageal reflux disease without esophagitis; E55.9 Vitamin D deficiency, unspecified; Z86.711 Personal history of pulmonary embolism; Z79.82 Long term (current) use of aspirin; Z87.891 Personal history of nicotine dependence; R00.0 Tachycardia, unspecified; I44.0 Atrioventricular block, first degree; R94.31 Abnormal electrocardiogram [ECG] [EKG]; Z20.822 Contact with and (suspected) exposure to COVID-19
CPT/HCPCS: 36415; 71045; 80053; 81001; 83605; 85025; 87040; 87426; 93005; 96365; 96375; 99284; A9270; C9803; J0696; J1100; J7120; U0003; U0005

== ENCOUNTER 2021-05-08 15:52 | Outpatient (CLI) | payer MEDICARE, SELFPAY ==
[2021-05-08 16:58] LABS: Free T4 Free Thyroxine 1.43 ng/mL (0.78-2.19)
[2021-05-08 18:15] LABS: Hemoglobin A1C 5.8 % (<5.7)
[2021-05-08 19:20] LABS: Anion Gap 10 mmol/L (8-16); Blood Urea Nitrogen 12 mg/dL (9-20); Calcium 9.5 mg/dL (8.4-10.2); Carbon Dioxide 31 mmol/L (22-30); Chloride 100 mmol/L (98-107); Cholesterol 138 mg/dL (0-200); Estimated Glomerular Filt Rate > 60; Glucose 132 mg/dL (65-110); HDL Direct 68 mg/dL; Potassium 4.3 mmol/L (3.4-5.0); Sodium 141 mmol/L (137-145); Triglycerides 75 mg/dL (<150)
[2021-05-08 19:30] LABS: LDL Cholesterol Direct 42 mg/dL
[2021-05-08 20:27] LABS: Folic Acid 14.8 ng/mL (2.76->20); Vitamin B12 > 1000.0 pg/mL (239-931)
== END 2021-05-08 15:53 | disposition home or self-care (01) ==
LOC: ANHLAB 15:57
PROVIDERS: PCP Internal Medicine; Visit Provider Internal Medicine
DX: E11.9 Type 2 diabetes mellitus without complications (principal); E78.2 Mixed hyperlipidemia; E03.9 Hypothyroidism, unspecified; E53.8 Deficiency of other specified B group vitamins; I10 Essential (primary) hypertension
CPT/HCPCS: 36415; 80048; 80061; 82607; 82746; 83036; 84439; 84443

== ENCOUNTER → 2021-05-12 03:10 | Outpatient (CLI) | payer MEDICARE, SELFPAY ==
[2021-05-12 18:29] LABS: SARS-CoV-2 RNA PCR Negative
== END ==
PROVIDERS: PCP Internal Medicine; Visit Provider Internal Medicine
DX: Z20.822 Contact with and (suspected) exposure to COVID-19 (principal)
CPT/HCPCS: C9803; U0003; U0005

== ENCOUNTER → 2021-05-26 02:33 | Outpatient (CLI) | payer MEDICARE, SELFPAY ==
[2021-05-26 19:35] LABS: SARS-CoV-2 RNA PCR Negative
== END ==
PROVIDERS: PCP Internal Medicine; Visit Provider Internal Medicine
DX: Z20.822 Contact with and (suspected) exposure to COVID-19 (principal)
CPT/HCPCS: C9803; U0003; U0005

== ENCOUNTER 2021-05-27 15:00 | Outpatient (RCR) | payer MEDICARE, SELFPAY ==
[2021-03-27 15:39] VITALS: PULSE 66
--- NOTE | 2021-04-30 14:06 | PCCPR ---
Absent today, not feeling well.
== END 2021-05-28 15:19 | disposition home or self-care (01) ==
LOC: ANHCPREHAB 15:00
PROVIDERS: PCP Internal Medicine
DX: Z95.5 Presence of coronary angioplasty implant and graft (principal)
CPT/HCPCS: 93798

== ENCOUNTER 2021-09-11 10:35 | Outpatient (CLI) | payer MEDICARE, SELFPAY ==
--- NOTE | 2021-09-14 16:58 | WPDHOLTEREM ---
Holter/Event Monitor Holter/Event Monitor Date of procedure: 09/11/21 Holter/Event Procedure: 48 Hr Holter Monitor Indications: Abnormal EKG/Atrial fibrillation Conclusion: 1. 48 hour holter monitor on 09/11/21. 2. Underlying rhythm is sinus rhythm. HR range 31-120 bpm; average HR 64 bpm. 3. No premature supraventricular complexes. No supraventricular tachycardia. 4. There are 530 premature ventricular complexes and 11 ventricular couplets. No ventricular tachycadia. 5. There are intermittent second degree AV block, type I and some second degree AV block with 2:1 conduction. Longest pause is 2.1 seconds. 6. Patient reports chest pressure which demonstrate sinus rhythm at 67 bpm with second degree AV block type I.
== END 2021-09-11 10:36 | disposition home or self-care (01) ==
LOC: ANHCARD 10:36
PROVIDERS: PCP Internal Medicine; Visit Provider Internal Medicine
DX: I48.91 Unspecified atrial fibrillation (principal)
CPT/HCPCS: 93225; 93226

== ENCOUNTER 2021-09-17 11:05 | Outpatient (CLI) | payer MEDICARE, SELFPAY ==
[2021-09-17 11:21] LABS: Basophils Absolute Auto 0.1 K/mm3 (0.0-0.1); Basophils Percent Auto 0.9 % (0.2-1.2); Eosinophils Absolute Auto 0.1 K/mm3 (0-0.3); Eosinophils Percent Auto 1.1 % (0-4.4); Hematocrit 36.1 % (42.0-52.0); Immature Granulocyte Absolute 0.04 K/mm3 (0.00-0.031); Immature Granulocyte Percent A 0.8 % (0-0.5); Lymphocytes Absolute Auto 0.85 K/mm3 (0.9-3.2); Lymphocytes Percent Auto 16.1 % (18.3-44.2); Mean Corpuscular HGB Conc 30.5 g/dl (32-36); Mean Corpuscular Volume 91.9 fl (80-100); Mean Platelet Volume 9.5 fl (7.4-10.4); Monocytes Absolute Auto 0.4 K/mm3 (0.1-0.6); Monocytes Percent Auto 6.6 % (2.6-8.5); Neutrophils Absolute Auto 3.9 K/mm3 (1.3-6.7); Neutrophils Percent Auto 74.5 % (45.5-73.1); Platelet Count Result 136 k/mm3 (150-375); Red Blood Count 3.93 M/mm3 (4.6-6.20); Red Cell Distribution Width 15.1 % (11.5-14.5); White Blood Count 5.3 K/mm3 (4.5-10.0)
[2021-09-17 11:34] LABS: Alanine Aminotransferase 19 U/L (4-50); Albumin Level 4.1 g/dL (3.5-5.1); Alkaline Phosphatase 110 U/L (38-126); Anion Gap 4 mmol/L (8-16); Aspartate Amino Transferase 44 U/L (17-59); Bilirubin,Total 0.7 mg/dL (0.2-1.3); Blood Urea Nitrogen 14 mg/dL (9-20); Calcium 8.9 mg/dL (8.4-10.2); Carbon Dioxide 32 mmol/L (22-30); Chloride 102 mmol/L (98-107); Cholesterol 127 mg/dL (0-200); Estimated Glomerular Filt Rate > 60; Glucose 128 mg/dL (65-110); HDL Direct 56 mg/dL; Hemoglobin A1C 5.7 % (<5.7); Potassium 4.3 mmol/L (3.4-5.0); Sodium 138 mmol/L (137-145); Triglycerides 87 mg/dL (<150)
[2021-09-17 11:45] LABS: LDL Cholesterol Direct 45 mg/dL
[2021-09-17 12:04] LABS: Thyroid Stimulating Hormone 0.347 uIU/mL (0.465-4.680)
[2021-09-17 12:09] LABS: Free T4 Free Thyroxine 1.68 ng/mL (0.78-2.19); Vitamin D 25 Hydroxy 27.4 ng/mL
== END 2021-09-17 11:06 | disposition home or self-care (01) ==
LOC: ANHLAB 11:10
PROVIDERS: PCP Internal Medicine; Visit Provider Internal Medicine
DX: E78.2 Mixed hyperlipidemia (principal); I10 Essential (primary) hypertension; E11.9 Type 2 diabetes mellitus without complications; Z79.899 Other long term (current) drug therapy; E55.9 Vitamin D deficiency, unspecified
CPT/HCPCS: 36415; 80053; 80061; 82306; 83036; 84439; 84443; 85025

== ENCOUNTER 2021-11-23 15:00 | Outpatient (RCR) | payer MEDICARE, SELFPAY ==
[2021-08-21 16:11] VITALS: PULSE 75
== END 2021-11-23 16:30 | disposition home or self-care (01) ==
LOC: ANHCPREHAB 15:00
PROVIDERS: PCP Internal Medicine; Visit Provider Internal Medicine
DX: Z95.2 Presence of prosthetic heart valve (principal)
CPT/HCPCS: 93798

== ENCOUNTER 2022-01-28 14:34 | Outpatient (CLI) | payer MEDICARE, SELFPAY ==
[2022-01-28 15:00] LABS: Basophils Percent Auto 0.7 % (0.2-1.2); Eosinophils Percent Auto 0.7 % (0-4.4); Hematocrit 30.6 % (42.0-52.0); Hemoglobin 9.1 g/dL (14.0-18.0); Immature Granulocyte Absolute 0.05 K/mm3 (0.00-0.031); Immature Granulocyte Percent A 0.8 % (0-0.5); Lymphocytes Absolute Auto 0.85 K/mm3 (0.9-3.2); Lymphocytes Percent Auto 14.2 % (18.3-44.2); Mean Corpuscular HGB Conc 29.7 g/dl (32-36); Mean Corpuscular Hemoglobin 24.8 pg (26-34); Mean Corpuscular Volume 83.4 fl (80-100); Monocytes Absolute Auto 0.4 K/mm3 (0.1-0.6); Monocytes Percent Auto 7.2 % (2.6-8.5); Neutrophils Absolute Auto 4.6 K/mm3 (1.3-6.7); Neutrophils Percent Auto 76.4 % (45.5-73.1); Platelet Count Result 151 k/mm3 (150-375); Red Blood Count 3.67 M/mm3 (4.6-6.20); Red Cell Distribution Width 16.8 % (11.5-14.5)
[2022-01-28 15:01] LABS: Anion Gap 6 mmol/L (8-16); Blood Urea Nitrogen 22 mg/dL (9-20); Calcium 8.8 mg/dL (8.4-10.2); Carbon Dioxide 30 mmol/L (22-30); Chloride 104 mmol/L (98-107); Cholesterol 134 mg/dL (0-200); Estimated Glomerular Filt Rate > 60; Glucose 120 mg/dL (65-110); HDL Direct 57 mg/dL; Potassium 4.5 mmol/L (3.4-5.0); Sodium 140 mmol/L (137-145); Triglycerides 71 mg/dL (<150)
[2022-01-28 15:12] LABS: LDL Cholesterol Direct 40 mg/dL
[2022-01-28 15:33] LABS: Platelet Estimate Adequate (Adequate)
[2022-01-28 15:34] LABS: Hypochromasia 1+ (NORMAL); Ovalocytes 1+ (NORMAL)
[2022-01-28 15:42] LABS: Free T4 Free Thyroxine 1.06 ng/mL (0.78-2.19)
[2022-01-28 16:52] LABS: Hemoglobin A1C 5.6 % (<5.7)
== END 2022-01-28 14:35 | disposition home or self-care (01) ==
LOC: ANHLAB 14:38
PROVIDERS: PCP Internal Medicine; Visit Provider Internal Medicine
DX: E78.2 Mixed hyperlipidemia (principal); E11.9 Type 2 diabetes mellitus without complications; E03.9 Hypothyroidism, unspecified; I10 Essential (primary) hypertension
CPT/HCPCS: 36415; 80048; 80061; 83036; 84439; 84443; 85025

== ENCOUNTER 2022-06-18 10:56 | Outpatient (CLI) | payer MEDICARE, SELFPAY ==
[2022-06-18 11:28] LABS: Basophils Percent Auto 0.4 % (0.2-1.2); Eosinophils Absolute Auto 0.1 K/mm3 (0-0.3); Eosinophils Percent Auto 1.5 % (0-4.4); Hematocrit 26.6 % (42.0-52.0); Hemoglobin 7.6 g/dL (14.0-18.0); Immature Granulocyte Absolute 0.02 K/mm3 (0.00-0.031); Immature Granulocyte Percent A 0.4 % (0-0.5); Lymphocytes Absolute Auto 0.67 K/mm3 (0.9-3.2); Lymphocytes Percent Auto 12.6 % (18.3-44.2); Mean Corpuscular HGB Conc 28.6 g/dl (32-36); Mean Corpuscular Hemoglobin 23.2 pg (26-34); Mean Corpuscular Volume 81.1 fl (80-100); Mean Platelet Volume 11.2 fl (7.4-10.4); Monocytes Absolute Auto 0.4 K/mm3 (0.1-0.6); Monocytes Percent Auto 7.3 % (2.6-8.5); Neutrophils Absolute Auto 4.1 K/mm3 (1.3-6.7); Neutrophils Percent Auto 77.8 % (45.5-73.1); Platelet Count Result 147 k/mm3 (150-375); Red Blood Count 3.28 M/mm3 (4.6-6.20); Red Cell Distribution Width 18.6 % (11.5-14.5); White Blood Count 5.3 K/mm3 (4.5-10.0)
[2022-06-18 11:41] LABS: Cholesterol 107 mg/dL (0-200); HDL Direct 62 mg/dL; Triglycerides 72 mg/dL (<150)
[2022-06-18 12:10] LABS: LDL Cholesterol Direct < 30 mg/dL
[2022-06-18 12:20] LABS: Anisocytosis 2+ (NORMAL); Hypochromasia 2+ (NORMAL); Platelet Estimate Adequate (Adequate); Schistocytes 1+ (NORMAL)
[2022-06-18 12:21] LABS: Ovalocytes 1+ (NORMAL); Poikilocytosis 2+ (NORMAL)
[2022-06-18 12:56] LABS: Free T4 Free Thyroxine 1.49 ng/mL (0.78-2.19); Vitamin D 25 Hydroxy 39.1 ng/mL
[2022-06-18 13:10] LABS: Iron 15 ug/dL (49-181)
[2022-06-18 13:32] LABS: Percent Iron Saturation 3 % (20-50)
[2022-06-18 13:43] LABS: Hemoglobin A1C 5.9 % (<5.7)
== END 2022-06-18 10:57 | disposition home or self-care (01) ==
PROVIDERS: PCP Internal Medicine; Visit Provider Internal Medicine
DX: R31.9 Hematuria, unspecified (principal); K92.1 Melena; I35.9 Nonrheumatic aortic valve disorder, unspecified; I10 Essential (primary) hypertension; E78.2 Mixed hyperlipidemia; E55.9 Vitamin D deficiency, unspecified; E11.9 Type 2 diabetes mellitus without complications; E03.9 Hypothyroidism, unspecified; D50.0 Iron deficiency anemia secondary to blood loss (chronic); Z79.899 Other long term (current) drug therapy
CPT/HCPCS: 36415; 80061; 82306; 82728; 83036; 83540; 83550; 84439; 85025

== ENCOUNTER 2022-06-22 14:05 | Outpatient (CLI) | payer MEDICARE, SELFPAY ==
[2022-06-22 15:57] LABS: Basophils Percent Auto 0.5 % (0.2-1.2); Eosinophils Absolute Auto 0.1 K/mm3 (0-0.3); Eosinophils Percent Auto 0.8 % (0-4.4); Hematocrit 27.2 % (42.0-52.0); Hemoglobin 7.8 g/dL (14.0-18.0); Immature Granulocyte Absolute 0.02 K/mm3 (0.00-0.031); Immature Granulocyte Percent A 0.3 % (0-0.5); Lymphocytes Absolute Auto 0.76 K/mm3 (0.9-3.2); Lymphocytes Percent Auto 12.6 % (18.3-44.2); Mean Corpuscular HGB Conc 28.7 g/dl (32-36); Mean Corpuscular Hemoglobin 22.5 pg (26-34); Mean Corpuscular Volume 78.6 fl (80-100); Mean Platelet Volume 10.2 fl (7.4-10.4); Monocytes Absolute Auto 0.5 K/mm3 (0.1-0.6); Monocytes Percent Auto 7.5 % (2.6-8.5); Neutrophils Absolute Auto 4.7 K/mm3 (1.3-6.7); Neutrophils Percent Auto 78.3 % (45.5-73.1); Platelet Count Result 151 k/mm3 (150-375); Red Blood Count 3.46 M/mm3 (4.6-6.20); Red Cell Distribution Width 18.5 % (11.5-14.5)
[2022-06-22 16:15] LABS: Hypochromasia 1+ (NORMAL); Platelet Estimate Adequate (Adequate)
[2022-06-22 16:16] LABS: Ovalocytes 1+ (NORMAL); Schistocytes None Seen (NORMAL)
== END 2022-06-22 14:06 | disposition home or self-care (01) ==
LOC: ANHLAB 14:08
PROVIDERS: PCP Internal Medicine; Visit Provider Internal Medicine
DX: D64.9 Anemia, unspecified (principal); I10 Essential (primary) hypertension
CPT/HCPCS: 36415; 85025; 86850; 86900; 86901

== ENCOUNTER 2022-07-15 10:58 | Day surgery (SDC) | payer MEDICARE, SELFPAY ==
[2022-07-01 09:13] VITALS: BMI 22.3
--- NOTE | 2022-07-14 20:07 | PM.HPGS ---
History of Present Illness History of Present Illness Consent: Risks, benefits, and alternatives have been discussed and questions answered. Patient agrees to proceed with procedure. Chief complaint: JACQUELYN Narrative: Drake Jett is a 87 year old male with iron deficiency anemia. Review of Systems Review of Systems: All systems reviewed & are unremarkable except as noted in HPI and below PMFSH Past Medical History Medical History A-fib Aortic valve disease Balance problem Benign essential hypertension Blood loss anemia BMI 23.0-23.9, adult BMI 24.0-24.9, adult BMI 26.0-26.9,adult BMI 27.0-27.9,adult BMI 29.0-29.9,adult BMI 32.0-32.9,adult BMI 33.0-33.9,adult Changing skin lesion Cognitive dysfunction Contusion of right foot DM type 2 (diabetes mellitus, type 2) Elevated homocysteine Encounter for Medicare annual wellness exam Encounter for routine adult health examination with abnormal findings Encounter for routine adult health examination without abnormal findings Follow up GERD (gastroesophageal reflux disease) Hearing loss History of pulmonary embolism Hospital discharge follow-up Hyperlipidemia Hypothyroidism (acquired) Left lower quadrant abdominal pain Major depressive disorder Melena Nocturia On 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 drug therapy Orthostatic hypotension Preoperative clearance Rectal bleeding Thoracic ascending aortic aneurysm Vitamin D deficiency Weight loss Surgical History Surgical History Status post abdominal aortic aneurysm (AAA) repair Social History Social History Smoking packs per day: 1.5 Smoking cigarettes per day: 30.0 Years smoked: 30 Smoking pack-years: 45.00 Smoking status: Former smoker Tobacco type: cigarettes Smoking end date: 07/11/85 Alcohol intake: current Substance use type: does not use Lack of Transportation: No Lack of Food: Never True Current Housing: I Have Housing Concerned About Future Housing: No Difficulty Paying Gas/Electric Bills: No Difficulty Paying for Meds: No Currently Unemployed: No Education: Master's Degree or Higher Living arrangements: alone Gender identity (if verbalized by the patient): Male Spiritual care concerns: No Meds Home Medications and Allergies Home Medications Medication Instructions Recorded Confirmed Type aspirin 81 mg tablet,delayed 81 mg PO DAILY 07/31/19 07/01/22 History release (Adult Low Dose Aspirin) clonazepam 1 mg tablet 1 mg PO DAILY 07/31/19 07/01/22 History desvenlafaxine succinate 100 mg 100 mg PO DAILY 07/31/19 07/01/22 History tablet,extended release 24 hr (Pristiq) sertraline 100 mg tablet 100 mg PO DAILY 07/31/19 07/01/22 History folic acid 1 mg tablet 1 mg PO DAILY #90 tabs 08/08/19 07/01/22 Rx amitriptyline 25 mg tablet 50 - 100 mg PO HS PRN Sleep 04/15/20 07/01/22 History aripiprazole 5 mg tablet 5 mg PO DAILY 04/15/20 07/01/22 History donepezil 5 mg tablet 5 mg PO ONCE 04/15/20 07/01/22 History pen needle, diabetic 31 gauge x #100 ea 09/02/20 06/23/22 Rx 3/16 (Pen Needle) levothyroxine 100 mcg tablet 100 mcg PO DAILY #90 tabs 07/06/21 07/01/22 Rx pantoprazole 40 mg tablet,delayed 40 mg PO BID #180 tabs 06/22/22 07/01/22 Rx release atorvastatin 80 mg tablet 80 mg PO DAILY 07/01/22 07/01/22 History Allergies Allergy/AdvReac Type Severity Reaction Status Date / Time latex Allergy Unknown Itching Verified 07/15/22 11:15 ANAFRANEL Allergy Mild MADE HIM Uncoded 07/01/22 09:13 JITTERY Exam Const: General: alert Orientation/consciousness: patient oriented x3 Resp: Auscultation: clear to auscultation bilaterally Cardio: Rhythm: regular rhythm GI: GI Palp: Yes Soft to palpation and No Tenderness to palpation present (GI) Neuro: General: patient oriented x3 Assessment and Plan Ass
[2022-07-15 11:16] VITALS: BP 127/66; PULSE 82; RESP 20; TEMP 36.3; O2SAT 97
[2022-07-15] MEDS: LACTATED RINGERS 1,000 ML 150 ML IV CONT (11:18)
[2022-07-15] MEDS: GENTAMICIN 80MG/SOD CHL 50 ML 80 MG/50 ML BAG 100 MG IVPB (11:31)
[2022-07-15 11:33] LABS: Glucose Point of Care 125 mg/dl (65-105)
--- NOTE | 2022-07-15 11:35 | SUR.PREOP ---
Patient complaining of being shakey. Daughter at bedside stating it is because he hasnt been able to eat. Orders to check blood glucose one time.
[2022-07-15] MEDS: AMPICILLIN 2 GM/NS 100 ML 2 GM/100 ML BAG IVPB (11:51)
--- NOTE | 2022-07-15 12:02 | WPDANESEPPF ---
Anes - Initial Pre Proc Eval Procedure: Operation Date: 07/15/22 12:30 Proposed Procedures p Esophagogastroduodenoscopy & Colonoscopy - John Paul Wisdom MD Date/Time: 07/15/22 12:02 Surgeon: John Paul Wisdom MD Pre Op Diagnosis: JACQUELYN Patient Data Age: 87 Gender: M Height: 1.73 m Weight: 67.9 kg Last Vital Signs Temp 97.3 F L 07/15/22 11:16 Pulse 82 07/15/22 11:16 Resp 20 07/15/22 11:16 BP 127/66 07/15/22 11:16 Pulse Ox 97 07/15/22 11:16 O2 Del Method Room Air 07/15/22 11:16 Allergies Allergy/AdvReac Type Severity Reaction Status Date / Time latex Allergy Unknown Itching Verified 07/15/22 11:15 ANAFRANEL Allergy Mild MADE HIM Uncoded 07/01/22 09:13 JITTERY Home Medications Medication Instructions Recorded Confirmed Type aspirin 81 mg tablet,delayed 81 mg PO DAILY 07/31/19 07/01/22 History release (Adult Low Dose Aspirin) clonazepam 1 mg tablet 1 mg PO DAILY 07/31/19 07/01/22 History desvenlafaxine succinate 100 mg 100 mg PO DAILY 07/31/19 07/01/22 History tablet,extended release 24 hr (Pristiq) sertraline 100 mg tablet 100 mg PO DAILY 07/31/19 07/01/22 History folic acid 1 mg tablet 1 mg PO DAILY #90 tabs 08/08/19 07/01/22 Rx amitriptyline 25 mg tablet 50 - 100 mg PO HS PRN Sleep 04/15/20 07/01/22 History aripiprazole 5 mg tablet 5 mg PO DAILY 04/15/20 07/01/22 History donepezil 5 mg tablet 5 mg PO ONCE 04/15/20 07/01/22 History pen needle, diabetic 31 gauge x #100 ea 09/02/20 06/23/22 Rx 3/16 (Pen Needle) levothyroxine 100 mcg tablet 100 mcg PO DAILY #90 tabs 07/06/21 07/01/22 Rx pantoprazole 40 mg tablet,delayed 40 mg PO BID #180 tabs 06/22/22 07/01/22 Rx release atorvastatin 80 mg tablet 80 mg PO DAILY 07/01/22 07/01/22 History Laboratory Tests 07/15/22 11:27 POC Capillary Glucose 125 mg/dl H mg/dl (65-105) Patient hx anesthesia problems: none Family hx anesthesia problems: none Results Review: All pre-operative results and documents have been reviewed as part of the pre-operative evaluation. [facility] Past Medical History Medical History A-fib Aortic valve disease Balance problem Benign essential hypertension Blood loss anemia BMI 23.0-23.9, adult BMI 24.0-24.9, adult BMI 26.0-26.9,adult BMI 27.0-27.9,adult BMI 29.0-29.9,adult BMI 32.0-32.9,adult BMI 33.0-33.9,adult Changing skin lesion Cognitive dysfunction Contusion of right foot DM type 2 (diabetes mellitus, type 2) Elevated homocysteine Encounter for Medicare annual wellness exam Encounter for routine adult health examination with abnormal findings Encounter for routine adult health examination without abnormal findings Follow up GERD (gastroesophageal reflux disease) Hearing loss History of pulmonary embolism Hospital discharge follow-up Hyperlipidemia Hypothyroidism (acquired) Left lower quadrant abdominal pain Major depressive disorder Melena Nocturia 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 Orthostatic hypotension Preoperative clearance Rectal bleeding Thoracic ascending aortic aneurysm Vitamin D deficiency Weight loss Surgical History Surgical History Status post abdominal aortic aneurysm (AAA) repair Social History Social History Smoking packs per day: 1.5 Smoking cigarettes per day: 30.0 Years smoked: 30 Smoking pack-years: 45.00 Smoking status: Former smoker Tobacco type: cigarettes Smoking end date: 07/11/85 Alcohol intake: current Substance use type: does not use Lack of Transportation: No Lack of Food: Never True Current Housing: I Have Housing Concerned About Future Housing: No Difficulty Paying Gas/Electric Bills: No Difficulty Paying for Meds: No Currently Unemployed: No Education: Master's Degree or Higher Living arrangements: alone Gender identity (if verba
--- NOTE | 2022-07-15 12:45 | SUR.OPER ---
EGD START 1217, END 1220 COLONOSCOPY START 1226, END 1242
[2022-07-15 12:46] VITALS: BP 89/58; PULSE 85; RESP 25; O2SAT 99
[2022-07-15 12:56] VITALS: BP 124/76; PULSE 81; RESP 24; O2SAT 100
[2022-07-15 13:06] VITALS: BP 127/73; PULSE 75; RESP 26; O2SAT 99
== END 2022-07-15 13:28 | disposition home or self-care (01) ==
PROVIDERS: PCP Internal Medicine; Visit Provider Internal Medicine Gastroenterology
PROC: 0DJ08ZZ Inspection of Upper Intestinal Tract, Via Natural or Artificial Opening Endoscopic (ICD-10-PCS; CPT 43235; principal; 2022-07-15 12:30)
DX: C18.0 Malignant neoplasm of cecum (principal); D50.9 Iron deficiency anemia, unspecified; K57.30 Diverticulosis of large intestine without perforation or abscess without bleeding; K29.70 Gastritis, unspecified, without bleeding; I48.91 Unspecified atrial fibrillation; I10 Essential (primary) hypertension; E11.9 Type 2 diabetes mellitus without complications; K21.9 Gastro-esophageal reflux disease without esophagitis; E78.5 Hyperlipidemia, unspecified; E03.9 Hypothyroidism, unspecified; F32.A Depression, unspecified; E55.9 Vitamin D deficiency, unspecified; Z86.711 Personal history of pulmonary embolism; Z79.82 Long term (current) use of aspirin; Z87.891 Personal history of nicotine dependence
CPT/HCPCS: 45381; 45380; 43239; 82948; 87081; 88305; J0290; J1580; J2704; J7120

== ENCOUNTER 2022-07-22 14:29 | Outpatient (CLI) | payer MEDICARE, SELFPAY ==
[2022-07-22 15:05] LABS: Basophils Absolute Auto 0.1 K/mm3 (0.0-0.1); Basophils Percent Auto 0.8 % (0.2-1.2); Eosinophils Absolute Auto 0.1 K/mm3 (0-0.3); Hematocrit 28.7 % (42.0-52.0); Immature Granulocyte Absolute 0.04 K/mm3 (0.00-0.031); Immature Granulocyte Percent A 0.7 % (0-0.5); Lymphocytes Percent Auto 13.5 % (18.3-44.2); Mean Corpuscular HGB Conc 27.9 g/dl (32-36); Mean Corpuscular Hemoglobin 21.3 pg (26-34); Mean Corpuscular Volume 76.5 fl (80-100); Mean Platelet Volume 10.8 fl (7.4-10.4); Monocytes Absolute Auto 0.5 K/mm3 (0.1-0.6); Monocytes Percent Auto 8.1 % (2.6-8.5); Neutrophils Absolute Auto 4.5 K/mm3 (1.3-6.7); Neutrophils Percent Auto 75.9 % (45.5-73.1); Platelet Count Result 169 k/mm3 (150-375); Red Blood Count 3.75 M/mm3 (4.6-6.20); Red Cell Distribution Width 18.4 % (11.5-14.5); White Blood Count 5.9 K/mm3 (4.5-10.0)
[2022-07-22 15:15] LABS: Alanine Aminotransferase 19 U/L (6-50); Albumin Level 4.2 g/dL (3.5-5.1); Alkaline Phosphatase 114 U/L (38-126); Aspartate Amino Transferase 28 U/L (17-59); Bilirubin,Total 0.7 mg/dL (0.2-1.3)
[2022-07-22 15:51] LABS: Anisocytosis 2+ (NORMAL); Hypochromasia 1+ (NORMAL); Platelet Estimate Adequate (Adequate)
[2022-07-22 15:52] LABS: Ovalocytes 1+ (NORMAL)
[2022-07-22 16:10] LABS: Schistocytes None Seen (NORMAL)
== END 2022-07-22 14:30 | disposition home or self-care (01) ==
LOC: ANHLAB 14:31
PROVIDERS: PCP Internal Medicine; Visit Provider Internal Medicine
DX: D50.0 Iron deficiency anemia secondary to blood loss (chronic) (principal); Z79.899 Other long term (current) drug therapy
CPT/HCPCS: 36415; 80076; 85025

== ENCOUNTER 2024-12-19 11:36 | Emergency (ER) | payer MEDICARE, SELFPAY ==
--- NOTE | ~2024-12-19 | CT_ITS ---
CTA abdomen pelvis Ordering provider: Ghulam Forte MD History: . AAA s/p reapir, hx colon cancer, LLQ pain . Comparison: October 29, 2020 Technique: CT angiogram abdomen and pelvis was performed following timed intravenous injection of con trast. Thin slice axial images and reformatted coronal images were obtained. Three dimensional reform atted images of the chest were also obtained using a Vitrea workstation. . Automated exposure contro l and iterative reconstruction technique were employed. The dose-length product was 391.18 mGy-cm. 10 0 mL Omnipaque 350 was given IV. FINDINGS: VISUALIZED LOWER CHEST: Mild dependent atelectasis bilaterally. Underlying fibrotic changes. Postoper ative changes in the sternum. Irregularity of the proximal aortic arch is noted. Further evaluation w ith a proper imaging advised. UPPER ABDOMINAL ORGANS: Liver: Normal. Gallbladder: Cholelithiasis. Spleen: Normal. Stomach/duodenum: Thickened lower esophagus which may indicate reflux esophagitis. Pancreas: Atrophic with pancreatic ductal prominence. Follow-up advised. Adrenals: Normal. Kidneys: Bilateral renal cysts are noted with the largest seen on the right kidney lower pole measuri ng 5.3 cm and the left mid pole measures 5.5 cm. One is also seen in the left side in the lower pole measuring 5.7 cm. PELVIC ORGANS: The bladder is underfilled. BOWEL AND MESENTERY: Colon: No evidence of diverticulitis. The appendix is not demonstrated. Small Bowel: Normal. No obstruction. Peritoneum/mesentery: No free air or free fluid. No mesenteric lymphadenopathy. RETROPERITONEUM: No retroperitoneal lymphadenopathy. ABDOMINAL AORTA: Grossly enlarged abdominal aortic aneurysm is seen measuring 15.2 x 13.2x 14.8 cm wi th surrounding hyperdensity seen anteriorly measuring 8.1 x 8.7 cm suggestive of a recent hematoma. I mpending rupture is highly suggestive. Stent graft is seen in the aorta and in the iliac arteries. Po ssible site of leak is noted in the stent graft superiorly.. Compression of the inferior vena cava is seen by the aneurysm. ILIAC ARTERIES AND BRANCHING VESSELS: Stent grafts are seen. RENAL ARTERIES: Normal caliber. CELIAC AXIS AND BRANCHING VESSELS: Atherosclerotic changes with narrowing at the origin.. SUPERIOR MESENTERIC ARTERY AND BRANCHING VESSELS: Atherosclerotic changes. INFERIOR MESENTERIC ARTERY: Normal demonstrated. VISUALIZED FEMORAL ARTERIES: Atherosclerotic changes. MUSCULOSKELETAL: Superficial soft tissues: The superficial soft tissues are normal. Bones: Age appropriate degenerative changes of the spine. Compression fracture of L2 which is most li susan chronic. MRI evaluation advised. IMPRESSION: 1. Huge abdominal aortic aneurysm measuring 15.3 x 13.1 x 14.8 cm with hyperdense areas seen around the stent graft which measures 8.2 x 8.7 cm. 2. Cholelithiasis. 3. 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 4. Other appearances as described above. Dr. Forte was notified with the result of the patient at 4.04 PM on November 18, 2024. Reviewed, dictated and finalized at location A. IMPRESSION: 1. Huge abdominal aortic aneurysm measuring 15.3 x 13.1 x 14.8 cm with hyperde nse areas seen around the stent graft which measures 8.2 x 8.7 cm. 2. Cholelithiasis. 3. 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 4. Other appearances as described above. Dr. Forte was notified with the result of the patient at 4.04 PM on November 18, 2024.
[2024-12-19 11:57] VITALS: BP 122/77; PULSE 95; RESP 29; O2SAT 98
--- NOTE | 2024-12-19 12:07 | ECG_ITS ---
Test Date: 2024-12-19 12:14:40 Measurements Intervals [place] Rate: 72 P: 0 MN: 0 QRS: 12 QRSD: 138 T: 63 QT: 418 QTc: 458 Interpretive Statements ATRIAL SENSE- ELECTRONIC VENTRICULAR PACEMAKER WITH INHIBITION BORDERLINE ST-T WAVE ABNORMALITY- ANTEROLAT/HIGH LAT LEADS BASELINE ARTIFACT- I, II, AVR NO FURTHER INTERPRETATION IS POSSIBLE BORDERLINE ECG No previous ECG available for comparison Electronically Signed On 12-19-2024 12:49:27 CDT by Vini De Paz D.O.
--- NOTE | 2024-12-19 12:52 | ED.ABDPAIN ---
HPI - Abdominal Pain General Chief Complaint: Abdominal Pain Stated Complaint: LLQ ABD PAIN X3D Time Seen by Provider: 12/19/24 12:03 History of Present Illness HPI narrative: 89-year-old male with complex vascular history including AAA status post grafting and stenting. Patient has a history of hypertension, diabetes, colon cancer now in remission. Patient's cares usually at [facility]. His vascular surgeon is Dr. Barbosa. Patient presents to the emergency department accompanied by his daughter for concerns of left lower quadrant abdominal pain for last 3 days. He was having some constipation and started on I bowel regimen and his assisted living facility which has moved his bowels and he had a bowel movement yesterday. Still feels some fullness and came to the hospital for evaluation. Denies any back pain, chest pain, shortness a breath, weakness, neuropathy, headache or vision changes. His family states that his AAA has been enlarging previously but they are monitoring without any surgical interventions. No trauma or injury. No bright red blood per rectum or melanotic stools. Related Data Home Medications ?Medication ?Instructions ?Recorded ?Confirmed ?Last Taken ?Type aspirin 81 mg tablet,delayed 81 mg PO DAILY 07/31/19 12/06/24 07/14/22 History release (Adult Low Dose Aspirin) aripiprazole 5 mg tablet 5 mg PO DAILY 04/15/20 12/06/24 07/14/22 History ascorbic acid (vitamin C) 500 mg mg PO 11/22/22 12/06/24 Unknown History capsule calcium carbonate 600 mg PO DAILY 11/22/22 12/06/24 Unknown History loperamide 2 mg capsule (Imodium 2 mg PO Q6H PRN 11/22/22 12/06/24 Unknown History A-D) simethicone 125 mg capsule (Gas 125 mg PO DAILY PRN 11/22/22 12/06/24 Unknown History Relief (simethicone)) desvenlafaxine succinate 50 mg 50 mg PO DAILY 02/27/24 12/06/24 Unknown History tablet,extended release 24 hr (Pristiq) clonazepam 1 mg tablet 1 mg PO .@ hs 07/19/24 12/06/24 Unknown History duloxetine 60 mg capsule,delayed 60 mg PO DAILY 07/19/24 12/06/24 Unknown History release sertraline 100 mg tablet 200 mg PO .every am 07/19/24 12/06/24 Unknown History memantine 5 mg tablet (Namenda) 5 mg PO BID 12/06/24 12/06/24 Unknown History Allergies Allergy/AdvReac Type Severity Reaction Status Date / Time latex Allergy Unknown Itching Verified 07/26/24 09:38 ANAFRANEL Allergy Mild MADE HIM Uncoded 07/26/24 09:38 JITTPOPPY Review of Systems Review of Systems: As reviewed above in [facility] Past Medical History Medical History Anemia of chronic disease BMI 20.0-20.9, adult Urinary incontinence BMI 21.0-21.9, adult Diarrhea Macular degeneration of left eye Impaired functional mobility, balance, gait, and endurance BMI 22.0-22.9, adult Tremor Adenocarcinoma of colon Orthostatic hypotension Contusion of right foot Balance problem Changing skin lesion Blood loss anemia Hospital discharge follow-up A-fib BMI 23.0-23.9, adult BMI 24.0-24.9, adult Preoperative clearance Aortic valve disease Follow up BMI 26.0-26.9,adult Left lower quadrant abdominal pain Rectal bleeding Melena Encounter for routine adult health examination with abnormal findings BMI 27.0-27.9,adult Cognitive dysfunction BMI 29.0-29.9,adult Vitamin D deficiency GERD (gastroesophageal reflux disease) Encounter for routine adult health examination without abnormal findings BMI 32.0-32.9,adult Nocturia Hypothyroidism (acquired) Elevated homocysteine Weight loss BMI 33.0-33.9,adult History of pulmonary embolism Hearing loss Major depressive disorder Thoracic ascending aortic aneurysm Encounter for Medicare annual wellness exam On jail drug therapy Hyperlipidemia Benign essential hypertension DM type 2 (diabetes mellitus, type 2) Surgical History Surgical History Status post right hemicolectomy Status post abdominal aortic aneurysm (AAA) repair Social History Social History Smoking packs per day: 1.5 Smoking cigarettes per day: 30.0 Years smoked: 30 Smoking pack-years: 45.00 Smoking status: Former smoker Tobacco type: cigarettes Smoking end date: 07/11/85 Alcohol intake: current Substance use type: does not use Lack of Transportation: No Lack of Food: Never True Current Housing: I Have Housing Concerned About Future Housing: No Difficulty Paying Gas/Electric Bills: No Difficulty Paying for Meds: No Currently Unemployed: No Education: Master's Degree or Higher Living arrangements: alone Occupation/Education: retired Gender identity (if verbalized by the patient): Male Spiritual care concerns: No Exam Narrative: GENERAL: [Well-appearing, well-nourished, and in no acute distress.] HEAD: [Normocephalic, atraumatic.] EYES: [PERRLA and EOMI.] ENT: Nares clear, no rhinorrhea or epistaxis. Mucous membranes moist. NECK: Supple. CHEST: [Clear to auscultation. No respiratory distress.] HEART: [Regular rate and rhythm]. No murmur heard. [Normal peripheral pulses.] ABDOMEN: [Soft, nondistended], mildly tender to palpation left lower quadrant, [No rigidity or guarding] EXTREMITIES: Normal range of motion. [No edema.] SKIN: Warm, dry, no rash. NEURO: [No focal deficits]. Alert and oriented [x3.] PSYCH: [Normal mood and affect.] Course Vital Signs Vital signs: Vital Signs Pulse Rate 95 12/19/24 11:57 Respiratory Rate 29 H 12/19/24 11:57 Blood Pressure 122/77 12/19/24 11:57 Pulse Oximetry 98 12/19/24 11:57 Pulse Rate 74 12/19/24 16:26 Respiratory Rate 18 12/19/24 16:26 Blood Pressure 143/83 H 12/19/24 16:26 Pulse Oximetry 97 12/19/24 16:26 MDM - Abdominal Pain MDM Narrative Medical decision making narrative: 89-year-old male with history of AAA status post grafting and stenting, diabetes, hypertension, colon cancer now in remission. Patient presents to the emergency department with left lower quadrant abdominal pain for last 3 days. He start a bowel regimen as he felt like he was constipated and has had bowel movements now but still having some pain and cramping. Minimal tenderness to palpation examination. Vital signs reassuring without any tachycardia, hypertension, hypoxia. He has strong symmetric pulses, warm extremities. Differential diagnosis includes diverticulosis, diverticulitis, AAA, intra-abdominal hemorrhage, intra-abdominal infection, gastroenteritis, colitis. Colon cancer recurrence also possible. CT scan with contrast was ordered angiography phase study ordered. CBC, CMP, lactic acid. Patient offered analgesia medications and politely declined at this juncture. Workup shows no leukocytosis or significant anemia. Platelet count around baseline. Coagulation panel unremarkable. Electrolytes normal. Normal glucose. Negative lactic acid, normal LFTs. Negative lipase. Urine without signs of infection. Patient CT angiography is very concerning for a impending AAA rupture with a he was AAA measuring 15.3 x 13.1 x 14.8 cm with hyperdensity consistent with graft leak/hematoma. This measures 8.2 x 8.7 cm. He also has compression of the IVC by the aneurysm and graft stent seen both and iliac arteries and aorta. These results were discussed with Radiology over the phone. Went and re-evaluated the patient who was doing okay, mild pain at this time, but given his CT angiography aneurysm finding with concern for impending rupture he requires emergent transfer to higher level of care center with vascular Services. Patient's vascular surgeon is Dr. Barbosa at [facility]. I spoke to the transfer line and they reached out to Dr. Barbosa who is currently in an aortic repair surgery but accepted the patient emergently to the ICU as a direct transfer. ICU bed assigned 1203, nurse to nurse report given, air evac arranged given patient's impending rupture and need for emergent evaluation and intervention. Patient and family made aware of the plan and current diagnostic findings and agreeable to transfer. Air evac has arrived to transfer the patient and the patient left the department at this time via helicopter. Medical Records Attestation: I reviewed the patient's medical records. Lab Data Attestation: I reviewed the patient's lab results. 12/19/24 13:40 12/19/24 13:40 Labs: Lab Results 12/19/24 12/19/24 12/19/24 Range/Units 12:44 13:21 13:40 WBC 6.2 (4.5-10.0) K/mm3 RBC 3.06 L (4.6-6.20) M/mm3 Hgb 9.2 L (14.0-18.0) g/dL Hct 30.8 L (42.0-52.0) % MCV 100.7 H (80-100) fl MCH 30.1 (26-34) pg MCHC 29.9 L (32-36) g/dl RDW 17.2 H (11.5-14.5) % Plt Count 116 L (150-375) k/mm3 MPV 10.1 (7.4-10.4) fl Immature Gran % (Auto) 1.0 H (0-0.5) % Neut % (Auto) 82.9 H (45.5-73.1) % Lymph % (Auto) 9.5 L (18.3-44.2) % [place] % (Auto) 5.5 (2.6-8.5) % Eos % (Auto) 0.5 (0-4.4) % Baso % (Auto) 0.6 (0.2-1.2) % Lymph # (Auto) 0.59 L (0.9-3.2) K/mm3 [place] # (Auto) 0.3 (0.1-0.6) K/mm3 Eos # (Auto) 0.0 (0-0.3) K/mm3 Baso # (Auto) 0.0 (0.0-0.1) K/mm3 Abs Immat Gran (auto) 0.06 H (0.00-0.031) K/mm3 Absolute Neuts (auto) 5.2 (1.3-6.7) K/mm3 Absolute Nucleated RBC 0.000 (0.0-0.012) K/mm3 Band Neutrophils % Not Reportable Nucleated RBC % 0.0 (0.0-0.2) % Platelet Estimate Decreased (Adequate) Hypochromasia 1+ Anisocytosis 1+ Schistocytes None seen PT 14.9 H (11.1-14.7) Seconds INR 1.2 APTT 30.5 (22.3-36.8) Seconds Sodium 139 (137-145) mmol/L Potassium 4.4 (3.4-5.0) mmol/L Chloride 105 (98-107) mmol/L Carbon Dioxide 29 (22-30) mmol/L Anion Gap 5 (4-12) mmol/L BUN 20 (9-20) mg/dL Creatinine 0.75 (0.7-1.3) mg/dL Estim Creat Clear Calc 48 ml/min Estimated GFR > 60 (59 - ) Glucose 117 H (65-110) mg/dL Lactic Acid 0.6 L (0.7-2.0) mmol/L Calcium 8.8 (8.4-10.2) mg/dL Total Bilirubin 0.6 (0.2-1.3) mg/dL AST 28 (17-59) U/L ALT 17 (6-50) U/L Alkaline Phosphatase 86 (38-126) U/L Total Protein 6.2 L (6.3-8.2) g/dL Albumin 3.3 L (3.5-5.1) g/dL Lipase 218 (23-300) U/L Urine Color Yellow (Yellow) Urine Appearance Clear (Clear) Urine pH 6.0 (5.0-9.0) Ur Specific [place] 1.024 (1.001-1.035) Urine Protein Negative (Negative) mg/dL Urine Glucose (UA) Negative (Negative) mg/dL Urine Ketones Trace H (Negative) mg/dL Ur Blood (Man) Negative (Negative) Urine Nitrate Negative (Negative) Urine Bilirubin Negative (Negative) Urine Urobilinogen 1.0 (<2.0) mg/dL Leukocyte Esterase Rfl Negative (Negative) COLTON/UL Imaging Data Attestation: I personally reviewed and interpreted this imaging study as follows: My impression: Impressions Abdomen/Pelvis CTA 12/19/24 15:51 IMPRESSION: 1. Huge abdominal aortic aneurysm measuring 15.3 x 13.1 x 14.8 cm with hyperdense areas seen around the stent graft which measures 8.2 x 8.7 cm. 2. Cholelithiasis. 3. 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 4. Other appearances as described above. Dr. Forte was notified with the result of the patient at 4.04 PM on November 18, 2024. Radiologist's impression: ITS Impressions Abdomen/Pelvis CTA 12/19/24 15:51 IMPRESSION: 1. Huge abdominal aortic aneurysm measuring 15.3 x 13.1 x 14.8 cm with hyperdense areas seen around the stent graft which measures 8.2 x 8.7 cm. 2. Cholelithiasis. 3. 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 4. Other appearances as described above. Dr. Forte was notified with the result of the patient at 4.04 PM on November 18, 2024. Critical Care Time Critical Care Time Critical Care Time: Yes Total Critical Care Time: 35 Discharge Plan Discharge Clinical Impression: AAA (abdominal aortic aneurysm, ruptured), History of AAA (abdominal aortic aneurysm) repair, Abdominal pain Patient Disposition: Acute Care Hospital Condition: Serious Instructions: Antibiotic Form Patient Language: [place] Prescriptions: No Action aripiprazole 5 mg tablet 5 mg PO DAILY memantine [Namenda] 5 mg tablet 5 mg PO BID loperamide [Imodium A-D] 2 mg capsule 2 mg PO Q6H PRN simethicone [Gas Relief (simethicone)] 125 mg capsule 125 mg PO DAILY PRN calcium carbonate 600 mg calcium (1,500 mg) tablet 600 mg PO DAILY ascorbic acid (vitamin C) 500 mg capsule PO (DME) Powerchair/ Scooter See Rx Instructions .Route .MEDSUPPLY Qty: 1 0RF Rx Instructions: As directed desvenlafaxine succinate [Pristiq] 50 mg tablet extended release 24 hr 50 mg PO DAILY aspirin [Adult Low Dose Aspirin] 81 mg tablet,delayed release (DR/EC) 81 mg PO DAILY (DME) pen needle, diabetic [Pen Needle] 31 gauge x 3/16 needle See Rx Instructions .ROUTE .MEDSUPPLY Qty: 100 2RF Rx Instructions: Use with victoza once a day. levothyroxine 100 mcg tablet See Rx Instructions .ROUTE .COMPLEX Qty: 90 3RF Dose Instruction: TAKE 1 TABLET DAILY Rx Instructions: TAKE 1 TABLET DAILY ferrous sulfate [FeroSul] 325 mg (65 mg iron) tablet See Rx Instructions .ROUTE .COMPLEX Qty: 180 1RF Dose Instruction: TAKE 1 TABLET BY MOUTH TWICE DAILY Rx Instructions: TAKE 1 TABLET BY MOUTH TWICE DAILY atorvastatin 80 mg tablet See Rx Instructions .ROUTE .COMPLEX Qty: 90 0RF Dose Instruction: TAKE 1 TABLET DAILY Rx Instructions: TAKE 1 TABLET DAILY duloxetine 60 mg capsule,delayed release(DR/EC) 60 mg PO DAILY clonazepam 1 mg tablet 1 mg PO .@ hs sertraline 100 mg tablet 200 mg PO .every am pantoprazole 40 mg tablet,delayed release (DR/EC) See Rx Instructions .ROUTE .COMPLEX Qty: 180 1RF Dose Instruction: TAKE 1 TABLET BY MOUTH TWICE DAILY Rx Instructions: TAKE 1 TABLET BY MOUTH TWICE DAILY amitriptyline 25 mg tablet See Rx Instructions PO .COMPLEX Qty: 30 0RF Rx Instructions: take 1 tab at hs orally; folic acid 1 mg tablet 1 mg PO DAILY Qty: 90 3RF Rx Instructions: 1 tablet daily at night time (7pm) Follow-up/Referrals: Bebeto Gerardo MD [Primary Care Provider] - Time of Disposition: 16:38
[2024-12-19 13:02] LABS: INR 1.2; Prothrombin Time 14.9 Seconds (11.1-14.7)
[2024-12-19 13:03] LABS: Partial Thromboplastin Time 30.5 Seconds (22.3-36.8)
[2024-12-19 13:14] LABS: Lactic Acid Reflex 0.6 mmol/L (0.7-2.0)
--- NOTE | 2024-12-19 13:15 | PC.NURSE ---
patient unable to provide urine sample, getting straight catheterized at this time
[2024-12-19 13:30] LABS: Add Urine Microscopic? NO; Appearance Urine Clear (Clear); Bilirubin Urine Negative (Negative); Blood Urine Negative (Negative); Color Urine Yellow (Yellow); Glucose Urine UA Negative (Negative); Ketones Urine Trace mg/dL (Negative); Leukocyte Esterase Ur Negative LEU/UL (Negative); Nitrate Urine Negative (Negative); Protein Urine Negative (Negative); Specific Grav Ur 1.024 (1.001-1.035)
--- OUTSIDE RECORDS SUMMARY | 2024-12-19 13:54 | XMS_ITS ---
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 htn TueJun 23 17:00:00 2020Jun 26 01:00:00 EST 2020 famotidine 20 mg tablet 1 tab TABLET Ora l PRN 2 Times Daily indigestion TueJun 19 16:00:00 2020Jun 26 01:00:00 2020 Accu-Chek Active Test strips as directed STRIP Subcutaneous 2 Times Daily for 3 Days TueJun 15 09:00:00 2020Jun 18 08:59:00 EST 2020 clonazePAM 0.5 mg tablet 0.5mg TABLET Or al PRN Every 1 Day TueJun 12 15:00:00 2020Jun 26 01:00:00 EST 2020 LORazepam 1 mg tablet 1 tablet TABLET Or al 1 Time Daily for 1 Day dx: anxious TueJun 11 22:00:00 2020Jun 12 21:59:00 2020 acetaminophen 500 mg tablet 2 tablets TABLET Oral PRN Every 6 Hours TueJun 10 15:00:00 2020Jun 26 01:00:00 EST 2020 amitriptyline 50 mg tablet 1 tablet TABL ET Oral 1 Time Daily depression, anxiety TueJun 10 21:00:00 2020Jun 26 01:00:00 EST 2020 ARIPiprazole 5 mg tablet 1 tablet TABLET Oral 1 Time Daily depression TueJun 11 09:00:00 2020Jun 26:00:00 EST 2020 aspirin 81 mg tablet,delayed release 1 tablet TABLET, DELAYED RELEASE (ENTERIC COATED) Oral 1 Time Daily prophylactic TueJun 11 17:00:00 2020Jun 26 01:00:00 EST 2020 atorvastatin 80 mg tablet 1 tablet TABLE T Oral 1 Time Daily hyperlipidemia TueJun 10 21:00:00 2020Jun 26:00:00 EST 2020 clopidogreL 75 mg tablet 1 tablet TABLET Oral 1 Time Daily cad TueJun 11 09:00:00 2020Jun 26:00:00 EST 2020 desvenlafaxine ER 100 mg tablet,extended release 24 hr 1 tablet TABLET, EXTENDED RELEASE 24 HR Oral 1 Time Daily Depression TueJun 11 09:00:00 2020Jun 26 01:00:00 EST 2020 donepeziL 10 mg tablet 1 tablet TABLET O ral 1 Time Daily Dementia TueJun 10 21:00:00 EST 2020Jun 26:00:00 EST 2020 famotidine 20 mg tablet 1 tablet TABLET Oral 2 Times Daily Gerd TueJun 10 18:00:00 EST 2020Jun 19 12:01:00 EST 2020 metoprolol tartrate 25 mg tablet 1 tablet TABLET Oral 2 Times Daily BP and/or Pulse Hold: Systolic Blood Pressure < 100 Hold;Pulse < 60 Hold;. htn TueJun 10 21:00:00 EST 2020 Tue Jun 23 11:41:00 EST 2020 sertraline 100 mg tablet 1 tablet TABLET Oral 1 Time Daily Depression TueJun 11 09:00:00 EST 2020Jun 26 01:00:00 EST 2020 levothyroxine 100 mcg tablet 1 tablet TABLET Oral 1 Time Daily hypothyroidism TueJun 11 07:00:00 2020Jun 26 01:00:00 EST 2020 tamsulosin 0.4 mg capsule 1 tablet CAPSU LE Oral 1 Time Daily bph TueJun 10 18:00:00 2020Jun 26 01:00:00 EST 2020 TUBErsoL 5 tub. unit/0.1 mL intradermal injection solution 0.1 ml VIAL (ML) Intradermal 1 Time Weekly for 2 Weeks (PPD) 1st injection upon admission. Read between 48 and 72 hours and give 2nd injection 1 week after the 1st if result is negative. If positive result, proceed with chest x-ray to rule out active disease. TueJun 10 09:00:00 EST 2020Jun 24 08:59:00 EST 2020 TUBErsoL 5 tub. unit/0.1 mL intradermal injection solution Read Results VIAL (ML) Other 1 Time Weekly for 2 Weeks Read results between 48-72 hours after 1st and 2nd 1 week apart. If positive do chest x-ray to rule out active disease. TueJun 10 09:00:00 EST 2020Jun 24 08:59:00 EST 2020 Problems Active Concerns * Leakage of aortic (bifurcation) graft (replacement), subsequent encounter* Code: * Start Date: TueJun 10 00:00:00 EST 2020 * End Date: * Text: * Encounter for surgical aftercare following surgery on the circulatory system* Code: * Start Date: TueJun 10 00:00:00 EST 2020 * End Date: * Text: * Presence of prosthetic heart valve* Code: * Start Date: TueJun 10 00:00:00 EST 2020 * End Date: * Text: * Presence of other vascular implants and grafts* Code: * Start Date: TueJun 10 00:00:00 EST 2020 * End Date: * Text: * Nonrheumatic aortic (valve) insufficiency* Code: * Start Date: TueJun 10 00:00:00 EST 2020 * End Date: * Text: * Presence of coronary angioplasty implant and graft* Code: * Start Date: TueJun 10 00:00:00 EST 2020 * End Date: * Text: * Personal history of nicotine dependence* Code: * Start Date: TueJun 10 00:00:00 EST 2020 * End Date: * Text: * Unspecified hearing loss, unspecified ear* Code: * Start Date: TueJun 10 00:00:00 EST 2020 * End Date: * Text: * Gastro-esophageal reflux disease without esophagitis* Code: * Start Date: TueJun 10 00:00:00 EST 2020 * End Date: * Text: * Essential (primary) hypertension* Code: * Start Date: TueJun 10 00:00:00 EST 2020 * End Date: * Text: * Hyperlipidemia, unspecified* Code: * Start Date: TueJun 10 00:00:00 2020 * End Date: * Text: * Hypothyroidism, unspecified* Code: * Start Date: TueJun 10 00:00:00 2020 * End Date: * Text: * Type 2 diabetes mellitus without complications* Code: * Start Date: TueJun 10 00:00:00 2020 * End Date: * Text: * Depression, unspecified* Code: * Start Date: TueJun 10 00:00:00 2020 * End Date: * Text: * Atherosclerotic heart disease of [place] coronary artery without angina pectoris* Code: * Start Date: TueJun 10 00:00:00 EST 2020 * End Date: * Text: * Postprocedural shock unspecified, subsequent encounter* Code: * Start Date: TueJun 10 00:00:00 2020 * End Date: * Text: * Other specified coagulation defects* Code: * Start Date: TueJun 10 00:00:00 2020 * End Date: * Text: * Other postprocedural complications and disorders of the circulatory system, not elsewhere classified* Code: * Start Date: TueJun 10 00:00:00 2020 * End Date: * Text: * Postprocedural hemorrhage of a circulatory system organ or structure following other procedure* Code: * Start Date: TueJun 10 00:00:00 2020 * End Date: * Text: * Type 2 diabetes mellitus with diabetic peripheral angiopathy without gangrene * Code: * Start Date: TueJun 10 00:00:00 2020 * End Date: * Text: * Chronic obstructive pulmonary disease, unspecified* Code: * Start Date: TueJun 10 00:00:00 2020 * End Date: * Text: * Unspecified dementia, unspecified severity, without behavioral disturbance, psychotic disturbance, mood disturbance, and anxiety* Code: * Start Date: TueJun 10 00:00:00 EST 2020 * End Date: * Text: * Unspecified osteoarthritis, unspecified site* Code: * Start Date: TueJun 10 00:00:00 2020 * End Date: * Text: * Obsessive-compulsive disorder, unspecified* Code: * Start Date: TueJun 10 00:00:00 2020 * End Date: * Text: * Major depressive disorder, single episode, unspecified* Code: * Start Date: TueJun 10 00:00:00 EST 2020 * End Date: * Text: * Benign prostatic hyperplasia without lower urinary tract symptoms* Code: * Start Date: TueJun 10 00:00:00 EST 2020 * End Date: * Text: * correction (current) use of antithrombotics/antiplatelets* Code: * Start Date: TueJun 10 00:00:00 EST 2020 * End Date: * Text: * meterman (current) use of aspirin* Code: * Start Date: TueJun 10 00:00:00 EST 2020 * End Date: * Text: * Thoracic aortic aneurysm, without rupture* Code: * Start Date: TueJun 10 00:00:00 EST 2020 * End Date: * Text: * Retention of urine, unspecified* Code: * Start Date: TueJun 10 00:00:00 EST 2020 * End Date: * Text: * Abdominal aortic aneurysm, ruptured* Code: * Start Date: TueJun 10 00:00:00 EST 2020 * End Date: * Text: * Anxiety disorder, unspecified* Code: * Start Date: TueJun 10 00:00:00 EST 2020 * End Date: * Text: * Muscle weakness (generalized)* Code: * Start Date: TueJun 10 00:00:00 EST 2020 * End Date: * Text: Reason for Referral Past Medical History
[2024-12-19 13:56] LABS: Basophils Percent Auto 0.6 % (0.2-1.2); Eosinophils Percent Auto 0.5 % (0-4.4); Hematocrit 30.8 % (42.0-52.0); Hemoglobin 9.2 g/dL (14.0-18.0); Immature Granulocyte Absolute 0.06 K/mm3 (0.00-0.031); Lymphocytes Absolute Auto 0.59 K/mm3 (0.9-3.2); Lymphocytes Percent Auto 9.5 % (18.3-44.2); Mean Corpuscular HGB Conc 29.9 g/dl (32-36); Mean Corpuscular Hemoglobin 30.1 pg (26-34); Mean Corpuscular Volume 100.7 fl (80-100); Mean Platelet Volume 10.1 fl (7.4-10.4); Monocytes Absolute Auto 0.3 K/mm3 (0.1-0.6); Monocytes Percent Auto 5.5 % (2.6-8.5); Neutrophils Absolute Auto 5.2 K/mm3 (1.3-6.7); Neutrophils Percent Auto 82.9 % (45.5-73.1); Platelet Count Result 116 k/mm3 (150-375); Red Blood Count 3.06 M/mm3 (4.6-6.20); Red Cell Distribution Width 17.2 % (11.5-14.5); White Blood Count 6.2 K/mm3 (4.5-10.0)
[2024-12-19 14:19] LABS: Anisocytosis 1+; Hypochromasia 1+; Platelet Estimate Decreased (Adequate); Schistocytes None Seen
[2024-12-19 14:27] VITALS: BP 108/60; PULSE 71; RESP 18; O2SAT 99
--- OUTSIDE RECORDS SUMMARY | 2024-12-19 14:40 | XMS_ITS | Clinical Summary ---
Author Organization [facility] Address [address] [place] [address] Care Team Providers Care Ship Washer Name Role Phone Bebeto Gerardo MD Primary Care Provider [phone] Jamin Arcos MD Unavailable [phone] Colton Don MD Unavailable [phone] Marisol Quiles MD Unavailable [phone] Al Starks MD Unavailable [phone] Liliane Mancia NP Unavailable [phone] Allergies Active Allergy Reactions Criticality Noted Date Comments Clomipramine Other (See comments) Low 10/29/2020 Jittery Latex Hives Medium 05/26/2010 Medications acetaminophen 500 mg capsule Take 2 capsules (1,000 mg total) by mouth every 6 (six) hours as needed for pain 1 Active ARIPiprazole (ABILIFY) 5 mg tabletIndication s:Depression Treatment Adjunct Take 1 tablet (5 mg total) by mouth every morning 30 tablet 3 Active aspirin 81 mg enteric coated tabletIndication s:prevention of thrombosis Take 1 tablet (81 mg total) by mouth every morning 30 tablet 3 Active atorvastatin (LIPITOR) 80 mg tabletIndication s:hyperlipidemia Take 1 tablet (80 mg total) by mouth every morning 30 tablet 3 Active clonazePAM (KlonoPIN) 1 mg tabletIndication s:Panic Disorder Take 1 tablet (1 mg total) by mouth nightly 30 tablet 3 Active desvenlafaxine ER (PRISTIQ) 100 mg 24 hr tabletIndication s:major depressive disorder Take 1 tablet (100 mg total) by mouth every morning 30 tablet 3 Active Additional Information Patient taking differently: 50 mgoralDaily, Takes in morning, Indications: major depressive disorder, Reported on 12/26/2023 donepeziL (ARICEPT) 10 mg tabletIndication s:Mild to Moderate Alzheimer's Type Dementia Take 1 tablet (10 mg total) by mouth daily 30 tablet 3 Active folic acid (FOLVITE) 1 mg tabletIndication s:Folate Deficiency Take 1 tablet (1 mg total) by mouth daily 30 tablet 3 Active multivitamin tabletIndication s:Vitamin Deficiency Prevention Take 1 tablet by mouth daily 30 tablet [address] (PROTONIX) 40 mg EC tabletIndication s:Stress Ulcer Prophylaxis Take 1 tablet (40 mg total) by mouth 2 (two) times a day 60 tablet 3 Active sertraline (ZOLOFT) 100 mg tabletIndication s:depression Take 2 tablets (200 mg total) by mouth every morning 60 tablet 3 Active Synthroid 100 mcg tabletIndication s:hypothyroidism Take 1 tablet (100 mcg total) by mouth every morning 30 tablet 3 Active amitriptyline (ELAVIL) 50 mg tablet Take 1 tablet (50 mg total) by mouth nightly Active FeroSuL 325 mg (65 mg iron) tablet Take 1 tablet (325 mg total) by mouth 2 (two) times a day [address] (CYMBALTA) 30 mg capsule Take 1 capsule (30 mg total) by mouth daily 4 Active mv-mn/lutein/calin x/bilber/hb277 (MACULAR HEALTH FORMULA ORAL) Take by mouth 1 tab daily (for eyes) Active Active Problems Problem Noted Date Diagnosed Date Arthritis 07/19/2023 Mixed conductive and sensorineural hearing loss 07/19/2023 Thrombocytopenia 10/25/2022 Anxiety 10/14/2022 Assessment & Plan (10/27/2022 11:07 AM CDT): On amitriptyline 50 mg nightly, clonazepam 1 mg nightly. Assessment & Plan (10/14/2022 4:03 PM CDT): On amitriptyline 50 mg nightly, clonazepam 1 mg nightly. Chronic anemia 10/14/2022 Assessment & Plan (10/27/2022 11:07 AM CDT): Hmg stable, plt low however. Monitor. Lovenox has been dc. Assessment & Plan (10/25/2022 11:19 AM CDT): Hmg stable, plt low however. Monitor. Lovenox has been dc. Assessment & Plan (10/21/2022 12:13 PM CDT): H&H improved to 8.5. Continue Iron & Lovenox. Assessment & Plan (10/18/2022 12:58 PM CDT): Hmg 8.1 10/15--7.8 10/18. Continue Iron BID. Is on Lovenox. Will recheck later this week. Monitor. Assessment & Plan (10/14/2022 4:04 PM CDT): Hemoglobin 7.5. Continue ferrous sulfate. Monitor H&H, patient on Lovenox. Severe malnutrition 10/07/2022 Assessment & Plan (10/27/2022 11:06 AM CDT): RD consult appreciated Assessment & Plan (10/18/2022 1:00 PM CDT): RD to follow. Depression 10/04/2022 Assessment & Plan (10/27/2022 11:07 AM CDT): Mood currently stable continue Abilify 5 mg, desvenlafaxine 100 mg, Zoloft 200 mg daily. Assessment & Plan (10/25/2022 11:19 AM CDT): Mood stable. Continue multi-drug regimen. Assessment & Plan (10/14/2022 4:03 PM CDT): Mood currently stable continue Abilify 5 mg, desvenlafaxine 100 mg, Zoloft 200 mg daily. Type I endoleak of aortic graft 10/04/2022 Gastroesophageal reflux disease 10/04/2022 Assessment & Plan (10/18/2022 1:04 PM CDT): Continue PPI. Will add Simethicone PRN for gas pains. Hard of hearing 10/04/2022 Hypothyroidism 10/04/2022 Assessment & Plan (10/27/2022 11:05 AM CDT): T6 3.95. Continue Synthroid 100 mcg daily Assessment & Plan (10/14/2022 4:02 PM CDT): T6 3.95. Continue Synthroid 100 mcg daily Malignant neoplasm of colon 09/16/2022 Overview (09/16/2022): Added automatically from request for surgery [id number] Assessment & Plan (10/27/2022 11:04 AM CDT): Pt is s/p right hemicolectomy on 10/06/[address] Quiles. 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 Oncology consulted, per Dr. Dunlap no indication for post surgery treatment, >95% are cured by surgery alone, except for interval colonoscopy, with the 1st [address] 1 year after the surgery, which would be due in 09/2023. Follow-up surgery, Dr. Quiles on 10/28/2022 Assessment & Plan (10/25/2022 11:18 AM CDT): DCP for 10/29. Has fu with surgery 10/28. Assessment & Plan (10/21/2022 12:15 PM CDT): Doing well in tx, CGA >200ft. Will dc Lovenox. Fu with SS on DCP. Assessment & Plan (10/14/2022 3:52 PM CDT): Pt is s/p right hemicolectomy on 10/06/[address] Quiles. 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 Oncology consulted, per Dr. Dunlap no indication for post surgery treatment, >95% are cured by surgery alone, except for interval colonoscopy, with the 1st [address] 1 year after the surgery, which would be due in 09/2023. Follow-up surgery, Dr. Quiles on 10/28/2022 Heart block 08/15/2022 Assessment & Plan (10/14/2022 3:56 PM CDT): Pt is s/p implantation of a Single Chamber Leadless VDD Pacemaker (Medtronic Micra AV) 08/[address] Arcos. F/U EP OP Mixed hyperlipidemia 06/10/2021 Assessment & Plan (10/27/2022 11:04 AM CDT): On Lipitor 80 mg daily Assessment & Plan (10/14/2022 4:01 PM CDT): On Lipitor 80 mg daily Assessment & Plan (04/17/2022 12:24 PM CDT): Stable Continue Lipitor Assessment & Plan (10/18/2021 9:34 AM CDT): Stable Continue Lipitor Type 2 diabetes mellitus wit h diabetic peripheral angiopathy without gangrene 06/10/2021 Atherosclerotic heart diseas e of [place] coronary artery without angina pectoris 06/10/2021 Nonrheumatic aortic valve insufficiency 06/10/20 21 Assessment & Plan (10/14/2022 4:00 PM CDT): Status post replacement. Follow-up cardiology outpatient Mixed hyperlipidemia 06/09/2021 Severe aortic regurgitation 05/29/2021 Overview (10/18/2021): Stable 05/29/2021 status post 25 Avalus valve Assessment & Plan (10/18/2021 9:34 AM CDT): Stable Continue clinical observation S/P aortic valve replacement 05/29/2021 Overview (10/18/2021): Twenty-five Avalus aortic valve placement 05/29/2021 Assessment & Plan (10/18/2021 9:35 AM CDT): Stable Continue clinical observation Coronary artery disease (CAD) excluded Assessment & Plan (04/20/2022 2:48 PM CDT): Stable Continue aspirin, Lipitor Assessment & Plan (10/23/2021 3:01 PM CDT): Stable Continue Plavix/aspirin until 02/13/2021 when he can discontinue Plavix and maintain aspirin HTN (hypertension) 04/07/2020 Assessment & Plan (10/27/2022 11:05 AM CDT): Blood pressure controlled. Currently not on any med Assessment & Plan (10/25/2022 11:17 AM CDT): BP stable off meds. Assessment & Plan (10/21/2022 12:12 PM CDT): BP stable. Continue to monitor. On no meds. Assessment & Plan (10/18/2022 1:02 PM CDT): BP stable. Not currently on meds. Monitor. Assessment & Plan (10/14/2022 4:00 PM CDT): Blood pressure controlled. Currently not on any medication. Continue to monitor Assessment & Plan (04/17/2022 12:23 PM CDT): Stable Continue clinical observation Assessment & Plan (10/18/2021 9:31 AM CDT): Stable continue clinical observation Assessment & Plan (03/30/2021 11:59 AM CDT): Stable Continue clinical observation Assessment & Plan (04/09/2020 10:05 AM CDT): - Home valsartan, holding with plans for PCP to resume when able - Q4h VS monitoring Type 2 diabetes mellitus with hyperlipidemia (CM S/HCC) 04/07/2020 Assessment & Plan (10/27/2022 11:06 AM CDT): A1c 5.3 in Aug. Diet controlled. Assessment & Plan (10/18/2022 1:00 PM CDT): A1c 5.3 in Aug. Diet controlled. Assessment & Plan (04/17/2022 12:24 PM CDT): Stable Continue Lipitor Assessment & Plan (10/18/2021 9:35 AM CDT): Stable Continue clinical observation Assessment & Plan (03/30/2021 11:59 AM CDT): Stable Continue Lipitor, aspirin Assessment & Plan (04/09/2020 10:05 AM CDT): - On home Victoza. - Diabetic diet with SSI while admitted. - HgA1c 5.8 Abdominal aortic aneurysm without rupture 2019 Overview (03/20/2020): Added automatically from request for surgery [id number] Assessment & Plan (04/17/2022 12:23 PM CDT): Stable Continue clinical observation Assessment & Plan (10/18/2021 9:31 AM CDT): Stable Prior abdominal aortic aneurysm with endograft. Type 1 leak Assessment & Plan (03/30/2021 11:59 AM CDT): Stable Continue clinical observation Assessment & Plan (04/09/2020 10:05 AM CDT): - Hx EVAR in 2004 complicated by type 2 endo-leak previously treated in intervention radiology. On recent 02/2020 imaging there was increasing ascending aortic dilation and again evidence of type 2 endoleak. Endoleak was not amendable to treatment by interventional radiology. - Taken to OR on 04/07/2020 for relining of EVAR. - Continue on aspirin and statin. - q4h NV checks - Continue monitoring B/P with q4h VS check History of abdominal aortic aneurysm (AAA) repai r 05/20/2017 Assessment & Plan (10/18/2022 1:01 PM CDT): underwent EVAR extension to the iliac bifurcation on 08/11/[address] Barbosa Resolved Problems Problem Noted Date Diagnosed Date Resolved Date AAA (abdominal aortic aneury sm) without rupture 08/11/2022 10/18/2022 Assessment & Plan (10/14/2022 3:59 PM CDT): underwent EVAR extension to the iliac bifurcation on 08/11/[address] Barbosa Aftercare following surgery of the circulatory system 07/30/2021 10/18/2022 Essential (primary) hypertension 06/10/2021 10/18/2022 Essential (primary) hypertension 06/09/2021 10/18/2022 Aneurysm 04/24/2021 10/18/2022 Overview (04/24/2021): Added automatically from request for surgery [id number] Ascending aortic aneurysm 02/04/2021 Overview (02/04/2021): Added automatically from request for surgery [id number] Moderate malnutrition (CMS/HCC) 10/30/2020 10/18/2022 Postoperative hypotension 04/08/2020 Assessment & Plan (04/09/2020 10:06 AM CDT): - Hypotensive post-operatively - NS bolus x2, 1u PRBC given 04/08 with improvement in BP - SBP goal 110-140 Encounters Date Type Department Care Team Description 10/08/2024 2:45 PM CDT Office Visit [facility] [address] [address] Liliane Mancia NP Cardiac arrhythmia, unspecified cardiac arrhythmia type (Primary Dx); Cardiac pacemaker in situ 10/08/2024 2:30 PM CDT Ancillary Procedure [facility] [address], [place] [address] Mobitz II (Primary Dx); Cardiac pacemaker from Last 3 Months Immunizations Immunization Administration Dates Next Due Influenza, Unspecified 04/10/2022,04/10/2021 Surgical History Surgery Date Site/Laterality Comments ENDOSCOPIC AORTIC REPAIR AORTIC VALVE REPLACEMENT 05/29/2021 AVR/asc.and hemiarch replacement ARTERIAL ANEURYSM REPAIR 05/29/2021 asc/hemiarch replacement ARTERIAL ANEURYSM REPAIR 08/11/2022 EVAR CARDIAC PACEMAKER PLACEMENT 08/16/2022 Mednate - Dr. 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 Type 2 diabetes mellitus with hyperlipidemia Severe malnutrition 10/07/2022 Chronic anemia 2021 Anxiety Arthritis Mixed conductive and sensorineural hearing loss Family History Medical History Relation Name Comments Cancer Brother Yair Hearing loss Father Santy Vision loss Father Santy Arthritis Mother Mom Diabetes Mother Mom Hypertension Mother Mom Mental illness Mother Mom Obesity Mother Mom Hearing loss Mother's Sister Shelbi Alzheimer's disease Sister Corinne Memory loss Sister Corinne Relation Name Status Comments Brother Yair Father Santy Maternal Grandfather Maternal Grandmother Mother Mom Mother's Sister Shelbi Paternal Grandfather Paternal Grandmother Sister Corinne Social History Tobacco Use Types Packs/Day Years Used Date Smoking Tobacco: Former Cigarettes 1.5 32 0 07/11/1949 - 07/11/1981 Smokeless Tobacco: Never Tobacco Cessation:Counseling Given: Not Answered Alcohol Use Standard Drinks/Week Comments Yes 0 (1 standard drink = 0.6 oz pur e alcohol) occassionally Social Connection and Isolat ion Panel [NHANES] Answer Date Recorded In a typical week, how many times do you talk on the phone with family, friends, or neighbors? More than three times a week 10/12/2022 How often do you get togethe r with friends or relatives? Once a week 10/12/2022 How often do you attend chur ch or jehovah's witness services? More than 4 times per year 10/12/2022 Do you belong to any clubs o r organizations such as cheondoism groups, unions, fraternal or athletic groups, or school groups? Yes 10/12/2022 How often do you attend meet ings of the clubs or organizations you belong to? More than 4 times per year 10/12/2022 Are you , , di vorced, , never , or living with a partner? 10/12/2022 AUDIT-C Answer Date Recorded Q1: How often do you have a drink containing alcohol? Never 09/22/2022 Q2: How many drinks containi ng alcohol do you have on a typical day when you are drinking? Patient does not drink Q3: How often do you have si x or more drinks on one occasion? Never 09/22/2022 Overall Financial Resource Strain (CARDIA) Answe r Date Recorded How hard is it for you to pa y for the very basics like food, housing, medical care, and heating? Not hard at all 10/12/2022 Hunger Vital Sign Answer Date Recorded Within the past 12 months, y ou worried that your food would run out before you got the money to buy more. Never true 08/12/19 23 Within the past 12 months, t he food you bought just didn't last and you didn't have money to get more. Never true 08/12/2022 PRAPARE - Transportation Answer Date Re corded In the past 12 months, has l ack of transportation kept you from medical appointments or from getting medications? No 10/2022 In the past 12 months, has l ack of transportation kept you from meetings, work, or from getting things needed for daily living? No 10/12/2022 Personal Safety Answer Date Recorded Have you ever been in or are you currently in a harmful physical or emotional relationship or is someone making you feel afraid or unsafe? 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 Gender Identity Not on file Sexual Orientation Not on file Obstetrics History Last Filed Vital Signs Vital Sign Reading Time Taken Comments Blood Pressure 110/64 10/08/2024 2:28 PM CDT Pulse 74 10/08/2024 2:28 PM CDT Temperature 36.5 C (97.7 F) 10/27/2022 10:55 AM CDT Respiratory Rate 16 09/22/2023 10:58 AM CDT Oxygen Saturation 90% 12/26/2023 10:21 AM CDT Inhaled Oxygen Concentration - - Weight 61.7 kg (136 lb) 10/08/2024 2:28 PM CDT Height 175.3 cm (5' 9) 10/08/2024 2:28 PM CDT Body Mass Index 20.08 10/08/2024 2:28 PM CDT Plan of Treatment Health Maintenance Due Date Last Done Comments Albumin Creatinine Ratio, Urine 1935 Depression Screening 1935 Dilated Eye Exam 1935 Foot Exam 1935 DTaP/Tdap/Td Vaccine (1 - Tdap) 1946 Hepatitis B Screening 1953 Pneumococcal vaccine 65+ (1 of 2 - PCV) 1954 Zoster Vaccine (1 of 2) 1954 Well Visit 65+ 2000 Hemoglobin A1C 02/12/2023 08/15/2022, 05/11, 04/07/2020 Lipid Panel 04/20/2023 04/20/2022, 11/2020, 02/06/2021, Additional history exists Fall Risk Assessment 10/14/2023 10/13/2022 eGFR 10/26/2023 10/25/2022, 10/09, 10/13/2022, Additional history exists Influenza Vaccine (Season Ended) 2025 04/10/20 22, 04/10/2021 Medical Devices Implanted Type Area Automobile Body Worker Device Identifier Shelf Expiration Date Model / Serial / Lot Wl [employer] Stent Endoprosthesis 59mm 9mm 13mm 8fr [place] Viabahn 135cm Balloon Expandable Guidewire [id number] - [id number] - [id number] Implanted:Qty: 1 on 08/11/2022 by Tyson Barbosa MD at [facility] Endoprosthesi s Right: Iliac W[employer] [id number] 06/12/2024 [id number] / [id number] / [employer] [id number] Zenith Flex Z-Trak 32mm 7.7mm 20fr 39mm Ancillary Introduction - S00 - [id number] Implanted:Qty: 1 on 04/07/2020 by Colton Don MD at [facility] Graft N/A: Aorta [employer] [id number] 12/29/2020 [id number] / 00 / [id number] [employer] [id number] Zenith Spiral-Z Z-Trak 13mm 5.4mm 14fr 39mm Iliac Leg Transcend - S00 - [id number] Implanted:Qty: 1 on 04/07/2020 by Colton Don MD at [facility] Graft Right: Iliac [employer] [id number] 08/28/2022 [id number] / 00 / [id number] Wl [employer] [id number] Viabahn 13mm 12fr 5cm 120cm Delivery System Tip To Hub Deployment - [id number] - [id number] Implanted:Qty: 1 on 04/07/2020 by Colton Don MD at [facility] Graft Left: Iliac W[employer] [id number] 01/16/2022 [id number] 02A / [id number] Cryolife Inc Pfp 6x8 Patch Cardiovascular 8x6cm Photofix Decellularized Bovine - [id number] Implanted:Qty: 1 on 05/29/2021 by Tyson Barbosa MD at [facility] Graft N/A: Heart [employer]ife Inc 02/28/2023 PFP 6X8 / / [id number] Terumo Cardio Vascular [id number] Gelweave Od30 Mm L60 Cm Thoracoabdominal Straight Graft Cardiovascular Polyester Gelatin Woven - [id number] - [id number] Implanted:Qty: 1 on 05/29/2021 by Tyson Barbosa MD at [facility] Graft N/A: Aorta [employer] 03/10/2023 [id number] / [id number] / [id number] [employer]ges [employer] Device Clsr Perclose Prostyle Sut-Mediatd Closure-Repair Sys 42461-50 - [id number] - [id number] Implanted:Qty: 1 on 08/16/2022 by Jamin Arcos MD at [facility] Other - see comments [employer] 05/10/2024 82532-7 / Medtronic Inc Saskia Av_Vr Leaderless Pacer - [id number] - [id number] Implanted:Qty: 1 on 08/16/2022 by Jamin Arcos MD at [facility] Pacemaker Medtronic Inc [id number] 11/05/2022 MC1 AVR1 / [id number] / Medtronic Inc 73180 25mm Valve Aortic Latex Free 400 Series - [id number] - [id number] Implanted:Qty: 1 on 05/29/2021 by Tyson Barbosa MD at [facility] Prosthetic Valve N/A: Aortic Valve Medtronic Inc 11/27/2023 [id number] / [id number] / Stent-03/31/2005 Implanted:Qty: 1 on 03/31/2005 Stent Aorta Wl [employer] [id number] Excluder 20mm 16.5-18.5mm 9.5cm Stent Abrasion Resistant - [id number] - [id number] Implanted:Qty: 1 on 10/30/2020 by Tyson Barbosa MD at [facility] Stent Right: Iliac Wl [employer] [id number] 05/08/2022 [id number] / [id number] Wl [employer] [id number] Excluder 20mm 16.5-18.5mm 9.5cm Stent Abrasion Resistant - [id number] - [id number] Implanted:Qty: 1 on 10/30/2020 by Tyson Barbosa MD at [facility] Stent Left: Iliac Wl [employer] [id number] 08/06/2023 [id number] 00 / [id number] Medtronic Usa Inc X [id number] Resolute Jer 4mm 2.1-2.7fr 26mm 140cm Rapid Exchange Radiopaque - [id number] - [id number] Implanted:Qty: 1 on 02/12/2021 by Remberto Ash DO at [facility] Stent N/A: Coronary Medtronic Inc 02/20/2022 [id number] / [id number] / [id number] Vas[employer] Ltd Kclt-06 Device 6fr Closure Celt Acd Vascular Sterile Latex Free Disposable Juan - [id number] - [id number] Implanted:Qty: 1 on 02/12/2021 by Remberto Ash DO at [facility] VASORUM LTD 07/24/2023 KCLT-06 / [id number] / [id number] Wl [employer] [place] Excluder 12mm 10cm Branch Component Iliac Graft Endovascular [id number] - [id number] - [id number] Implanted:Qty: 1 on 08/11/2022 by Tyson Barbosa MD at [facility] Right: Iliac W[employer] 03/02/2025 [id number] / [id number] / [employer] Device Clsr Perclose Prostyle Sut-Mediatd Closure-Repair Sys 70669-53 - [id number] - [id number] Implanted:Qty: 1 on 08/16/2022 by Jamin Arcos MD at [facility] [employer] 05/10/2024 27851-9 / / Explanted Type Area Automobile Body Worker Device Identifier Shelf Expiration Date Model / Serial / Lot Teleflex Medical Inc Weck Horizon 6 Cartridge Ligate Triangulate Cross Section Heart [id number] - S0 - [id number] Explanted:Qty: 1 on 08/11/2022 at [facility] Clip Teleflex Medical Inc 02/15/2027 [id number] / [id number] / Teleflex [employer] Inc Weck Horizon 6 Cartridge Ligate Triangulate Cross Section Heart [id number] - S0 - [id number] Explanted:Qty: 1 on 08/11/2022 at [facility] Clip Teleflex Medical Inc 05/17/2027 [id number] / 0 / Procedures Procedure Name Priority Date/Time Associated Diagnosis Comments ECG 12-LEAD Routine 10/08/2024 2:29 PM CDT Cardiac arrhythmia, unspecified cardiac arrhythmia type DEVICE CHECK - IN OFFICE Routine 10/08/2024 2:09 PM CDT Cardiac pacemaker EGFR Routine 10/25/2022 6:29 AM CDT HEMOGLOBIN A1C STAT 08/15/2022 10:53 AM MANAGER INVENTORY MANAGEMENT POCT LIPID PANEL Routine 04/20/2022 3:08 PM CDT Mixed hyperlipidemia from Last 3 Months or Most Recently Relevant to Health Maintenance Results * ECG 12 lead (10/08/2024 2:29 PM CDT) Liliane Mancia NP ECG ORDERABLES Final Resu lt * DEVICE CHECK - IN OFFICE (10/08/2024 2:09 PM CDT) Anatomical Region Laterality Modality Other Narrative 10/13/2024 11:07 AM CDT Table formatting from the original result was not included. PM CHECK (IN OFFICE) Patient ID: Drake Jett is a 89 y.o. male This patient received a Medtronic Pacemaker. They had a routine in-office device interrogation on 10/08/24 Device implant indications: Mobitz type 2 Interrogation of the patient's device demonstrates the following: Presenting EGM: AM/FIRE PATROLLER + FIRE PATROLLER @ 80 bpm Underlying rhythm: V sense at 67 bpm Original Device Settings Right Ventricle Sensitivity (mV) 2.0 mV Pacing Outputs 1.0 V @ 0.24 ms Testing Measurements Right Ventricle Sensitivity (mV) 8.2 mV Impedence (Ohms) 490 ohms Pace Threshold 0.5 V @ 0.24 ms Pacing % 60.9 % 17 % Battery Status: 7.5 years to LILI Episodes last 90 days/Comments: Small percentage of ventricular sensed events up to 130 beats per minute. NORMAL DEVICE FUNCTION PROGRAMMED MEDICATIONS: Anti-coagulant(s): Aspirin 81 mg Anti-arrhythmic(s): None PLAN: 1) Medtronic Pacemaker evaluation 2) Medtronic remote transmission scheduled in 3 months. 3) Programming appropriate for device measurements Elsa Hinton RN us Jamin Arcos MD [facility] PRO CEDURES Final Result * eGFR (10/25/2022 6:29 AM CDT) eGFR 93 mL/min/1. 73 m2 JONATHON Comment: Interpretive Data Reference Interval Normal >/= 90 mL/min/1.73m2 Mildly decreased* 60 - 89 mL/min/1.73m2 Mildly to moderately decreased 45 - 59 mL/min/1.73m2 Moderately to severely decreased 30 - 44 mL/min/1.73m2 Severely decreased 15 - 29 mL/min/1.73m2 Kidney Failure < 15 mL/min/1.73m2 *Relative to young adult level Estimated glomerular filtration rate is determined by the 2020 CKD-EPI equation recommended by the National Kid[employer] (A Unifying Approach to GFR Estimation: Recommendations of the NKF-ASK Task Force on Reassessing the Inclusion of Race in Diagnosing Kidney Disease, JASN 2020). The CKD-EPI equation should not be used for patients with unstable renal function and has not been validated in children and those over 70. Current interpretive data was last reviewed 2021. Testing performed by: [facility], [address] [place] [address]., [address] Blood 10/25/2022 6:29 AM CDT 10/25/2022 7:02 AM CDT us Dayanna Sheikh NP LAB BLOOD ORDERABLES Final Result Performing Organization Address City/[facility]/ZIP Co de Phone Number [facility] [address] [facility] Department [place] [address] * Hemoglobin A1c (08/15/2022 10:53 AM MANAGER INVENTORY MANAGEMENT) [facility] Hgb A1C 5.3 4.0 - 5.6 % [facility] Estimated Average Glucose 105 mg/dL [facility] Comment: The ADA recommends reporting an estimated Average Glucose (eAG) with all Hemoglobin A1c results using the equation derived from a study of 507 normal and diabetic adults. Minority populations were underrepresented and children were not included. (Diabetes Care 31:9338-0190, 2008). The eAG is not equivalent to a fasting glucose. Blood 08/15/2022 10:5 3 AM MANAGER INVENTORY MANAGEMENT 08/15/2022 11:03 AM MANAGER INVENTORY MANAGEMENT Rosalia Azul MD LAB BLOOD ORDERABLES Final Res ult Performing Organization Address City/[facility]/ZIP Co de Phone Number [facility] [address] Department [place] [address] * POCT lipid panel (04/20/2022 3:08 PM CDT) [facility] Cholesterol, POC 105 mg/dL HDL, POC 67 mg/dL Triglycerides, POC 45 mg/dL LDL Cholesterol POC 29 mg/dL Chol/HDL Ratio, POC 1.5 Non-HDL Cholesterol, POC 37 mg/dL Cholesterol Total, POC 105 mg/dL Capillary blood 04/20/2022 3 :08 PM CDT Remberto Ash DO POINT OF CARE TEST ORDERAB LES Final Result from Last 3 Months or Most Recently Relevant to Health Maintenance Insurance [facility] MEDICARE [facility] Advance Directives For more information, please contact: [phone] Documents on File Type Date Recorded Patient Rehab Technician Expl anation Advance Directives and Livin g Will 10/06/2022 5:25 AM * Full Code (Latest Code Status on File) Date Activated Date Inactivated Comments 10/06/2022 3:25 PM 10/13/2022 8:34 PM * Full Code Date Activated Date Inactivated Comments 08/15/2022 1:52 PM 08/17/2022 10:47 PM * Full Code Date Activated Date Inactivated Comments 08/11/2022 3:23 PM 08/13/2022 7:44 PM * Full Code Date Activated Date Inactivated Comments 05/29/2021 2:41 PM 06/10/2021 5:13 PM * Full Code Date Activated Date Inactivated Comments 02/12/2021 2:24 PM 02/13/2021 5:23 PM Care Teams Ship Washer Relationship Specialty Start Date End Date Bebeto Gerardo MD [address] [facility] [address] [place] [address] PCP - General 07/12/17 Jamin Arcos MD [address] [address] Consulting Physician Cardiology 08/17/22 Colton Don MD [address] [id number] Surgeon Vascular Surgery 04/09/20 Marisol Quiles MD [address] [address] Consulting Physician Surgery 10/09/22 Al Starks MD [address] [facility] [address] [place] [address] Head Custodian Cardiology 01/13/23 Liliane Mancia NP [address] [place] [address] Nurse Practitioner Clinical Cardiac Electrophysiology 10/11/24
--- OUTSIDE RECORDS SUMMARY | 2024-12-19 14:40 | XMS_ITS ---
Author Organization [facility] Address [address] [place] [address] Care Team Providers Care Meals On Wheels Driver Name Role Phone Bebeto Gerardo MD Primary Care Provider [phone] Jamin Arcos MD Unavailable [phone] Colton Don MD Unavailable [phone] Marisol Quiles MD Unavailable Al Starks MD Unavailable Liliane Mancia NP Unavailable [phone] Active Problems Problem Noted Date Diagnosed Date [...] (09/16/2022): Added automatically from request for surgery [id number] Assessment & Plan (10/27/2022 11:04 AM CDT): [...] gangrene 06/10/2021 Atherosclerotic heart diseas e of [place] coronary artery without angina pectoris 06/10/2021 Nonrheumatic [...] (10/27/2022 11:06 AM CDT): A1c 5.3 in Feb. Diet controlled. Assessment & Plan (10/18/2022 1:00 PM CDT): A1c 5.3 in Feb. Diet controlled. Assessment & Plan (04/17/2022 12:24 [...] (03/20/2020): Added automatically from request for surgery [id number] Assessment & Plan (04/17/2022 12:23 PM CDT): [...] iliac bifurcation on 08/11/[address] Barbosa Current Treatment and Therapy Plans No current plan information found. Past Treatment and Therapy Plans No past plan information found. Lifetime Dose Tracking * Chemical Lifetime Dose Automatic Entry Manual Entr y Air kerma at the reference point (Ka,r) 880 mGy 0 mGy 880 mGy DLP 7,790 mGycm 7,790 mGycm 0 mGycm Resolved Problems Problem Noted Date Diagnosed Date [...] (04/24/2021): Added automatically from request for surgery [id number] Ascending aortic aneurysm 02/04/2021 Overview (02/04/2021): Added automatically from request for surgery [id number] Moderate malnutrition (CMS/HCC) 10/30/2020 10/18/2022 Postoperative hypotension 04/08/2020 Assessment & Plan (04/09/2020 10:06 AM CDT): - Hypotensive post-operatively - NS bolus x2, 1u PRBC given 04/08 with improvement in BP - SBP goal 110-140
--- OUTSIDE RECORDS SUMMARY | 2024-12-19 14:40 | XMS_ITS | Encounter Summary ---
Author Organization [facility] Address [address] [place] [address] Care Team Providers Care Inspector Plug Seam Name Role Phone Bebeto Gerardo MD Primary Care Provider [phone] Colton Don MD Unavailable [phone] Jamin Arcos MD Unavailable [phone] Al Starks MD Unavailable [phone] Colton Don MD Unavailable [phone] Marisol Quiles MD Unavailable [phone] Al Starks MD Unavailable [phone] Liliane Mancia NP Unavailable [phone] Encounter Details Date Type Department Care Team (Late st Contact Info) Description 12/10/2020 Telephone [facility] - Imaging [address] [place] [address] Transcribed Order, Provider Social History Tobacco Use Types Packs/Day Years Used Date Smoking Tobacco: Former Cigarettes 2 32 1 950 - 1982 Smokeless Tobacco: Never Alcohol Use Standard Drinks/Week Comments Yes 0 (1 standard drink = 0.6 oz pur e alcohol) occassionally Sex and Gender Information Value Date Recorded Sex Assigned at Not on file Legal Sex Male 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 Gender Identity Not on file Sexual Orientation Not on file documented as of this encounter Plan of Treatment Not on file documented as of this encounter Visit Diagnoses Not on filedocumented in this encounter Care Teams Inspector Plug Seam Relationship Specialty Start Date End Date Bebeto Gerardo MD [address] [place] [address] PCP - General 07/12/17 Colton Don MD [address] [place] [address] Surgeon Vascular Surgery 04/09/20 10/03/22 Jamin Arcos MD [address] [facility] [address], [place] [id number] Consulting Physician Cardiology 08/17/22 Al Starks MD [address] [facility] [address] [address] Law Office Assistant Cardiology 10/21/22 12/23/22 Colton Don MD [address] [facility] [address], [place] [id number] Surgeon Vascular Surgery 04/09/20 Marisol Quiles MD [address] [facility] [address], [place] [address] Consulting Physician Surgery 10/09/22 Al Starks MD [address] [facility] [address] [place] [address] Law Office Assistant Cardiology 01/13/23 Liliane Mancia NP [address] [facility] [address], [place] [address] Nurse Practitioner Clinical Cardiac Electrophysiology 10/11/24 documented as of this encounter
--- OUTSIDE RECORDS SUMMARY | 2024-12-19 14:40 | XMS_ITS ---
Author Name Auto Generated, Auto Generated Organization [facility] Address [address] [place] [address] Phone [phone] Care Team Providers Care Managed Care Coordinator Name Role Phone Nabor Washburn Unavailable [phone] Functional Status No Results Mental Status No [...] * Text: * Atherosclerotic heart disease of [place] coronary artery without angina pectoris* Code: * [...] 2020 * End Date: * Text: * residential (current) use of antithrombotics/antiplatelets* Code: * Start Date: TueJun 10 00:00:00 EST 2020 * End Date: * Text: * marking machine tender (current) use of aspirin* Code: * Start [...]
--- OUTSIDE RECORDS SUMMARY | 2024-12-19 14:40 | XMS_ITS | Referral Summary ---
Author Organization [facility] Address [address] [place] [address] Care Team Providers Care Hotel Attendant Name Role Phone Bebeto Gerardo MD Primary Care Provider [phone] Jamin Arcos MD Unavailable [phone] Colton Don MD Unavailable [phone] Marisol Quiles MD Unavailable Al Starks MD Unavailable Liliane Mancia NP Unavailable [phone] Encounters Date Type Department Care Team Description 10/08/2024 2:45 PM CDT Office Visit Arrhythmia Center [facility][note 3][address] [address] Liliane Mancia, [place] Cardiac arrhythmia, unspecified cardiac arrhythmia type (Primary Dx); Cardiac pacemaker in situ 10/08/2024 2:30 PM CDT Ancillary Procedure Arrhythmia Center [address] [address] Mobitz II (Primary Dx); Cardiac pacemaker from Last 3 Months Allergies Active Allergy Reactions Criticality Noted Date Comments Clomipramine Other (See comments) Low 10/29/2020 Jittery Latex Hives Medium 05/26/2010 Medications acetaminophen 500 mg capsule Take 2 capsules (1,000 mg total) by mouth every 6 (six) hours as needed for pain 12/01/202 1 Active ARIPiprazole (ABILIFY) 5 mg tabletIndication [...] (09/16/2022): Added automatically from request for surgery [id number] Assessment & Plan (10/27/2022 11:04 AM CDT): [...] gangrene 06/10/2021 Atherosclerotic heart diseas e of [place] coronary artery without angina pectoris 06/10/2021 Nonrheumatic [...] (10/27/2022 11:06 AM CDT): A1c 5.3 in Fe. Diet controlled. Assessment & Plan (10/18/2022 1:00 PM CDT): A1c 5.3 in Fe. Diet controlled. Assessment & Plan (04/17/2022 12:24 [...] (03/20/2020): Added automatically from request for surgery [id number] Assessment & Plan (04/17/2022 12:23 PM CDT): [...] (04/24/2021): Added automatically from request for surgery [id number] Ascending aortic aneurysm 02/04/2021 Overview (02/04/2021): Added automatically from request for surgery [id number] Moderate malnutrition (CMS/HCC) 10/30/2020 10/18/2022 Postoperative hypotension 04/08/2020 Assessment & Plan (04/09/2020 10:06 AM CDT): - Hypotensive post-operatively - NS bolus x2, 1u PRBC given 04/08 with improvement in BP - SBP goal 110-140 Immunizations Immunization Administration Dates Next Due Influenza, Unspecified 04/10/2022,04/10/2021 Social History Tobacco Use Types Packs/Day Years [...] 10/12/2022 How often do you attend chur or protestant services? More than 4 times per year 10/12/2022 Do you belong to any clubs o r organizations such as jain groups, unions, fraternal or athletic groups, or [...] on file Legal Sex Male 4:07 AM TELESALES MANAGER Gender Identity Not on file Sexual Orientation Not on file Last Filed Vital Signs Vital Sign Reading [...] 10/08/2024 2:28 PM CDT Plan of Treatment Not on file Medical Devices Implanted Type Area Investigation Officer Device Identifier Shelf Expiration Date Model / Serial / Lot Wl [employer]thel [employer] Associates Inc Stent Endoprosthesis 59mm 9mm 13mm 8fr Ethel Viabahn 135cm Balloon Expandable Guidewire [id number] - [id number] - [id number] Implanted:Qty: 1 on 08/11/2022 by Tyson Barbosa MD at [facility] Endoprosthesi s Right: Iliac W[employer] Inc [id number] 06/12/2024 [id number] / [id number] / Cook Medical Inc [id number] Zenith Flex Z-Trak 32mm 7.7mm 20fr 39mm Ancillary Introduction - S00 - [id number] Implanted:Qty: 1 on 04/07/2020 by Colton Don MD at [facility] Graft N/A: Aorta [employer] Inc [id number] 12/29/2020 [id number] / 00 / [id number] Cook [employer] Inc [id number] Zenith Spiral-Z Z-Trak 13mm 5.4mm 14fr 39mm Iliac Leg Transcend - S00 - [id number] Implanted:Qty: 1 on 04/07/2020 by Colton Don MD at [facility] Graft Right: Iliac [employer] Inc [id number] 08/28/2022 [id number] / 00 / [id number] Wl [employer]thel [employer] Associates Inc [id number] Viabahn 13mm 12fr 5cm 120cm Delivery System Tip To Hub Deployment - [id number] - [id number] Implanted:Qty: 1 on 04/07/2020 by Colton Don MD at [facility] Graft Left: Iliac W[employer] Inc [id number] 01/16/2022 [id number] 02A / [id number] Cryolife Inc Pfp 6x8 Patch Cardiovascular 8x6cm Photofix Decellularized Bovine - [id number] Implanted:Qty: 1 on 05/29/2021 by Tyson Barbosa MD at [facility] Graft N/A: Heart Cryolife Inc 02/28/2023 PFP 6X8 / / [id number] Terumo Cardio Vascular [id number] Gelweave Od30 Mm L60 Cm Thoracoabdominal Straight Graft Cardiovascular Polyester Gelatin Woven - [id number] - [id number] Implanted:Qty: 1 on 05/29/2021 by Tyson Barbosa MD at [facility] Graft N/A: Aorta Terumo Cardio Vascular 03/10/2023 [id number] / [id number] / [id number] Bridges Vascular Device Clsr Perclose Prostyle Sut-Mediatd Closure-Repair Sys 03820-50 - [id number] - [id number] Implanted:Qty: 1 on 08/16/2022 by Jamin Arcos MD at [facility] Other - see comments Bridges Vascular 05/10/2024 84213-6 / Medtronic Inc Saskia Av_Vr Leaderless Pacer - [id number] - [id number] Implanted:Qty: 1 on 08/16/2022 by Jamin Arcos MD at [facility] Pacemaker Medtronic Inc [id number] 11/05/2022 1 AVR1 / [id number] / Medtronic Inc [id number] 25mm Valve Aortic Latex Free 400 Series - [id number] - [id number] Implanted:Qty: 1 on 05/29/2021 by Tyson Barbosa MD at [facility] Prosthetic Valve N/A: Aortic Valve Medtronic Inc 11/27/2023 [id number] / [id number] / Stent-03/31/2005 Implanted:Qty: 1 on 03/31/2005 Stent Aorta Wl [employer]thel [employer] Associates Inc [id number] Excluder 20mm 16.5-18.5mm 9.5cm Stent Abrasion Resistant - [id number] - [id number] Implanted:Qty: 1 on 10/30/2020 by Tyson Barbosa MD at [facility] Stent Right: Iliac Wl [employer]thel [employer] Associates Inc [id number] 05/08/2022 [id number] 00 / [id number] / Wl Ethel & Associates Inc [id number] Excluder 20mm 16.5-18.5mm 9.5cm Stent Abrasion Resistant - [id number] - [id number] Implanted:Qty: 1 on 10/30/2020 by Tyson Barbosa MD at [facility] Stent Left: Iliac Wl [employer]thel [employer] Associates Inc [id number] 08/06/2023 [id number] 00 / [id number] / 0000 Medtronic Usa Inc X [id number] Resolute Kelso 4mm 2.1-2.7fr 26mm 140cm Rapid Exchange Radiopaque - [id number] - [id number] Implanted:Qty: 1 on 02/12/2021 by Remberto Ash DO at [facility] Stent N/A: Coronary Medtronic Inc 02/20/2022 [id number] / [id number] / [id number] Vasorum Ltd Kclt-06 Device 6fr Closure Celt Acd Vascular Sterile Latex Free Disposable Juan - [id number] - [id number] Implanted:Qty: 1 on 02/12/2021 by Remberto Ash DO at [facility] VASORUM LTD 07/24/2023 KCLT-06 / [id number] / [id number] Wl Ethel & Associates Inc Ethel Excluder 12mm 10cm Branch Component Iliac Graft Endovascular [id number] - [id number] - [id number] Implanted:Qty: 1 on 08/11/2022 by Tyson Barbosa MD at [facility] Right: Iliac Wl [employer]thel [employer] Associates Inc 03/02/2025 [id number] 10A / [id number] / Bridges Vascular Device Clsr Perclose Prostyle Sut-Mediatd Closure-Repair Sys 60812-06 - [id number] - [id number] Implanted:Qty: 1 on 08/16/2022 by Jamin Arcos MD at [facility] Bridges Vascular 05/10/2024 77600-1 3 / / Explanted Type Area Investigation Officer Device Identifier Shelf Expiration Date Model / Serial / Lot Omniata Medical Meg[employer] Weck Horizon 6 Cartridge Ligate Triangulate Cross Section Heart [id number] - S0 - [id number] Explanted:Qty: 1 on 08/11/2022 at [facility] Clip Teleflex Medical Inc 02/15/2027 [id number] / 0 / Teleflex Medical Inc Weck Horizon 6 Cartridge Ligate Triangulate Cross Section Heart [id number] - S0 - [id number] Explanted:Qty: 1 on 08/11/2022 at [facility] Clip Teleflex Medical Inc 05/17/2027 [id number] / 0 / Procedures Procedure Name Priority Date/Time Associated Diagnosis Comments ECG 12-LEAD Routine 10/08/2024 2:29 PM CDT Cardiac arrhythmia, unspecified cardiac arrhythmia type DEVICE CHECK - IN OFFICE Routine 10/08/2024 2:09 PM CDT Cardiac pacemaker EGFR Routine 10/25/2022 6:29 AM CDT HEMOGLOBIN A1C STAT 08/15/2022 10:53 AM TELESALES MANAGER POCT LIPID PANEL Routine 04/20/2022 3:08 PM [...] patient's device demonstrates the following: Presenting EGM: AM/CDS SALES ADVISOR + CDS SALES ADVISOR @ 80 bpm Underlying rhythm: V sense [...] CDT) eGFR 93 mL/min/1. 73 m2 JONATHON MUNROE Comment: Interpretive Data Reference Interval Normal >/= [...] was last reviewed 2021. Testing performed by: [facility], [address] [place] [address]., [address] Blood 10/25/2022 6:29 AM CDT 10/25/2022 7:02 AM CDT us Dayanna Sheikh ACOUSTICAL TILE PATTERNMAKER LAB BLOOD ORDERABLES Final Result JONATHON MUNROE [address] [place] [address] Department [place] [address] * Hemoglobin A1c (08/15/2022 10:53 AM TELESALES MANAGER) Hgb A1C 5.3 4.0 - 5.6 % [facility] Estimated Average Glucose 105 mg/dL [facility] Comment: The ADA recommends reporting an estimated Average Glucose (eAG) with all Hemoglobin A1c results using the equation derived from a study of 507 normal and diabetic adults. Minority populations were underrepresented and children were not included. (Diabetes Care 31:2971-8247, 2008). The eAG is not equivalent to a fasting glucose. Blood 08/15/2022 10:5 3 AM TELESALES MANAGER 08/15/2022 11:03 AM TELESALES MANAGER us Rosalia Azul MD LAB BLOOD ORDERABLES Final Res ult [facility] [address] [place] [address] * POCT lipid panel (04/20/2022 3:08 PM CDT) Cholesterol, POC 105 mg/dL HDL, POC 67 mg/dL Triglycerides, POC 45 mg/dL LDL Cholesterol POC 29 mg/dL Chol/HDL Ratio, POC 1.5 Non-HDL Cholesterol, POC 37 mg/dL Cholesterol Total, POC 105 mg/dL Capillary blood 04/20/2022 3 :08 PM CDT us Remberto Ash DO POINT OF CARE TEST ORDERAB LES Final Result from Last 3 Months or Most Recently Relevant to Health Maintenance Insurance MEDICARE [facility] MEDICARE [facility] Advance Directives For more information, please contact: [phone] Documents on File Type Date Recorded Patient Spouting Installer Expl anation Advance Directives and Robert ramirez Will 10/06/2022 5:25 AM * Full Code [...] 2:24 PM 02/13/2021 5:23 PM Care Teams Hotel Attendant Relationship Specialty Start Date End Date Bebeto Gerardo MD [address] [facility] [address] INTERNAL MEDICINE [place] [id number] PCP - General 07/12/17 Jamin Arcos MD [address] [facility] [address], [place] [address] Consulting Physician Cardiology 08/17/22 Colton Don MD [address] [facility] [address], [place] [address] Surgeon Vascular Surgery 04/09/20 Marisol Quiles MD [address] [facility] [address], [place] [id number] Consulting Physician Surgery 10/09/22 Al Starks MD [address] [facility] [address] [place] [address] Cardiac Rn Cardiology 01/13/23 Liliane Mancia NP [address] [address] Nurse Practitioner Clinical Cardiac Electrophysiology 10/11/24
--- NOTE | 2024-12-19 15:01 | PC.NURSE ---
called laboratory at this time to inquire about CMP results, Nahun in laboratory stated that that will be the next thing ran in the lab.
[2024-12-19 15:16] LABS: Alanine Aminotransferase 17 U/L (6-50); Albumin Level 3.3 g/dL (3.5-5.1); Alkaline Phosphatase 86 U/L (38-126); Anion Gap 5 mmol/L (4-12); Aspartate Amino Transferase 28 U/L (17-59); Bilirubin,Total 0.6 mg/dL (0.2-1.3); Blood Urea Nitrogen 20 mg/dL (9-20); Calcium 8.8 mg/dL (8.4-10.2); Carbon Dioxide 29 mmol/L (22-30); Chloride 105 mmol/L (98-107); Estimated CRCL calculation 48 ml/min; Estimated Glomerular Filt Rate > 60; Glucose 117 mg/dL (65-110); Lipase 218 U/L (23-300); Potassium 4.4 mmol/L (3.4-5.0); Sodium 139 mmol/L (137-145); Total Protein 6.2 g/dL (6.3-8.2)
--- NOTE | 2024-12-19 15:35 | PC.NURSE ---
patient returned from ct at this time
[2024-12-19 16:26] VITALS: BP 143/83; PULSE 74; RESP 18; O2SAT 97
[2024-12-19 17:13] VITALS: BP 140/91; PULSE 63; RESP 18; O2SAT 99
== END 2024-12-19 16:22 | disposition short-term general hospital (02) ==
PROVIDERS: Emergency Provider Student in an Organized Health Care Education/Training Program; PCP Internal Medicine
DX: I71.40 Abdominal aortic aneurysm, without rupture, unspecified (principal); I48.91 Unspecified atrial fibrillation; I35.9 Nonrheumatic aortic valve disorder, unspecified; I10 Essential (primary) hypertension; E55.9 Vitamin D deficiency, unspecified; E03.9 Hypothyroidism, unspecified; E78.5 Hyperlipidemia, unspecified; E11.9 Type 2 diabetes mellitus without complications; D63.8 Anemia in other chronic diseases classified elsewhere; H35.30 Unspecified macular degeneration; K21.9 Gastro-esophageal reflux disease without esophagitis; F32.9 Major depressive disorder, single episode, unspecified; Z95.0 Presence of cardiac pacemaker; Z95.5 Presence of coronary angioplasty implant and graft; Z95.828 Presence of other vascular implants and grafts; Z86.711 Personal history of pulmonary embolism; Z85.038 Personal history of other malignant neoplasm of large intestine; Z87.891 Personal history of nicotine dependence; Z90.49 Acquired absence of other specified parts of digestive tract; K80.20 Calculus of gallbladder without cholecystitis without obstruction; I87.1 Compression of vein; Z79.82 Long term (current) use of aspirin; Z79.899 Other long term (current) drug therapy; R94.31 Abnormal electrocardiogram [ECG] [EKG]
CPT/HCPCS: 36415; 74174; 80053; 81003; 83605; 83690; 85025; 85610; 85730; 93005; 99291; Q9967